=== PATIENT | male | born 1935 | race Caucasian/White ===

== ENCOUNTER → 2019-09-20 | Outpatient (CLI) | payer OTHER, BC ==
[~2019-09-20] MED LIST: ADULT LOW DOSE81 MG; BROVANA15 MCG/2 M; FUROSEMIDE 40 M40 MG; HYDROCHLOROTH12.5 MG; KLOR-CON; LOPRESSOR; PULMICORT0.5 MG/2 M; SIMVASTATIN80 MG; SINGULAIR 10 MG10 M1
== END ==
LOC: SJCVC 09:47
DX: I10 Essential (primary) hypertension (principal); R94.31 Abnormal electrocardiogram [ECG] [EKG]; J44.9 Chronic obstructive pulmonary disease, unspecified; E11.9 Type 2 diabetes mellitus without complications; E78.5 Hyperlipidemia, unspecified; Z88.8 Allergy status to other drugs, medicaments and biological substances; Z79.84 Long term (current) use of oral hypoglycemic drugs; Z79.899 Other long term (current) drug therapy

== ENCOUNTER → 2019-09-27 | Outpatient (CLI) | payer OTHER, BC | LOC: RAD 09:40 → SJCVC 09:40 | DX: J44.9 Chronic obstructive pulmonary disease, unspecified (principal); J98.4 Other disorders of lung ==

== ENCOUNTER → 2019-11-08 | Outpatient (CLI) | payer OTHER, BC | LOC: SJCVC 10:47 | DX: R94.31 Abnormal electrocardiogram [ECG] [EKG] (principal); I10 Essential (primary) hypertension; E78.5 Hyperlipidemia, unspecified; J44.9 Chronic obstructive pulmonary disease, unspecified; E11.9 Type 2 diabetes mellitus without complications ==

== ENCOUNTER → 2020-01-26 | Outpatient (CLI) | payer OTHER, BC | LOC: SJCVC 13:43 | DX: R94.31 Abnormal electrocardiogram [ECG] [EKG] (principal); I44.0 Atrioventricular block, first degree; I10 Essential (primary) hypertension; R06.09 Other forms of dyspnea; E78.5 Hyperlipidemia, unspecified; R60.9 Edema, unspecified; I61.1 Nontraumatic intracerebral hemorrhage in hemisphere, cortical ==

== ENCOUNTER → 2020-05-30 | Outpatient (CLI) | payer OTHER, BC | LOC: SJCVC 10:28 | PROVIDERS: ATTEND Internal Medicine Cardiovascular Disease | DX: R06.09 Other forms of dyspnea (principal); I10 Essential (primary) hypertension; R60.9 Edema, unspecified; E78.00 Pure hypercholesterolemia, unspecified; Z79.899 Other long term (current) drug therapy; Z87.891 Personal history of nicotine dependence ==

== ENCOUNTER → 2020-11-28 | Outpatient (CLI) | payer OTHER, BC | LOC: SJCVC 11:29 | PROVIDERS: ATTEND Internal Medicine Cardiovascular Disease | DX: R94.31 Abnormal electrocardiogram [ECG] [EKG] (principal); I10 Essential (primary) hypertension; R06.00 Dyspnea, unspecified; J44.9 Chronic obstructive pulmonary disease, unspecified; E78.00 Pure hypercholesterolemia, unspecified; R60.9 Edema, unspecified; I63.9 Cerebral infarction, unspecified; E11.9 Type 2 diabetes mellitus without complications; E78.5 Hyperlipidemia, unspecified; G47.33 Obstructive sleep apnea (adult) (pediatric); M10.9 Gout, unspecified; Z79.899 Other long term (current) drug therapy; Z79.82 Long term (current) use of aspirin; Z88.0 Allergy status to penicillin; Z87.891 Personal history of nicotine dependence; Z72.89 Other problems related to lifestyle; Z86.73 Personal history of transient ischemic attack (TIA), and cerebral infarction without residual deficits; Z79.84 Long term (current) use of oral hypoglycemic drugs ==

== ENCOUNTER → 2020-12-03 | Outpatient (CLI) | payer OTHER, BC | LOC: SJCVCIMAG 07:14 | PROVIDERS: ATTEND Internal Medicine Cardiovascular Disease | DX: R94.31 Abnormal electrocardiogram [ECG] [EKG] (principal); I44.0 Atrioventricular block, first degree; R06.09 Other forms of dyspnea; E78.00 Pure hypercholesterolemia, unspecified; I10 Essential (primary) hypertension; J44.9 Chronic obstructive pulmonary disease, unspecified; R60.9 Edema, unspecified; E11.9 Type 2 diabetes mellitus without complications; M10.9 Gout, unspecified; E78.5 Hyperlipidemia, unspecified; G47.33 Obstructive sleep apnea (adult) (pediatric); Z79.82 Long term (current) use of aspirin; Z79.899 Other long term (current) drug therapy; Z79.84 Long term (current) use of oral hypoglycemic drugs; Z86.73 Personal history of transient ischemic attack (TIA), and cerebral infarction without residual deficits; Z87.891 Personal history of nicotine dependence; Z72.89 Other problems related to lifestyle; Z88.0 Allergy status to penicillin ==

== ENCOUNTER → 2021-01-28 | Outpatient (CLI) | payer OTHER, BC ==
--- NOTE | 2021-01-31 16:51 | SLE ---
[facility] [place] [address] POLYSOMNOGRAPHY STUDY Name: JERO REEVES Room #: REG [facility]#: [id number] Admission: 01/28/21 Attend Phys: John Hoff MD Discharge: Date of : 34 Report #: [id number] THIS REPORT FOR: cc: CINDY - Family physician unknown CINDY - Family physician unknown Buster Paul MD ~ DATE OF SERVICE: 01/28/2021 SLEEP STUDY ATTENDING PHYSICIAN: Dr. John Hoff. The patient is an 85-year-old who weighs 197 pounds with a BMI of 30.9. The patient's [place] score was 9. The patient has a history of sleep apnea, diagnosed several years ago in [place]. The patient's AHI was only 11 per hour. The patient has been on auto CPAP at a minimum pressure of 8 and a maximum pressure of 14. The patient's recent download data shows AHI was only 0.2. The patient averaging 7-1/2 hours of CPAP usage. Another sleep study was performed to assess for degree of severity of sleep apnea. Split-night study was ordered. During the night study, the patient spent 414 minutes in bed and slept for 242 minutes with a low sleep efficiency of 58%. Sleep latency was 19 minutes with a REM latency of 305 minutes. Sleep architecture showed normal stage 1 sleep, increased stage 2 sleep, absent slow wave and reduced REM sleep, which was 7% of total sleep time. During the night of the study, the patient had 30 obstructive apneas, no mixed or central apneas and 13 hypopneas. The patient's AHI was 10.6 per hour. Supine AHI 12.9 per hour. REM sleep was not observed. EKG monitoring revealed an average heart rate of 84 beats per minute. No sustained arrhythmias observed. PLMs were not seen. Nocturnal oximetry study revealed an average oxygen saturation of 89% with lowest of 84%. 194 minutes were spent with oxygen saturation of less than 89%. Majority of the time saturations were between 88%-90% Due to low AHI, the patient did not meet the split night criteria for CPAP initiation. IMPRESSION: 1. Mild obstructive sleep apnea at an AHI of 10.6 per hour. 2. Nocturnal hypoxia secondary to suspected hypoventilation and obstructive sleep apnea. [facility] [address] [place] [address] POLYSOMNOGRAPHY STUDY Name: JERO REEVES Room #: REG [facility]#: [id number] Admission: 01/28/21 Attend Phys: John Hoff MD Discharge: Date of : 34 Report #: [id number] 3. No clinically significant PLMs. 4. 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 RECOMMENDATIONS: 1. The patient did not meet the split night criteria for CPAP initiation due to low AHI. 2. The patient has mild sleep apnea. 3. Weight loss as initial form of treatment is recommended. If the patient has comorbid conditions or is clinically symptomatic, then consider treatment of sleep apnea with CPAP. 4. Avoid AUTOMOTIVE PAINT TECHNICIAN depressants. 5. 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 If this is a chronic condition, then it can also contribute to the patient's daytime somnolence and it should be further evaluated and treated according to the etiology. 6. Cautioned regarding driving until the patient's hypersomnia is resolved. <ELECTRONICALLY SIGNED> By: Buster Paul MD 01/31/21 [phone] Buster Paul MD /nt
== END ==
LOC: SLEEPLAB 10:02
PROVIDERS: ATTEND Internal Medicine
DX: G47.33 Obstructive sleep apnea (adult) (pediatric) (principal); G47.34 Idiopathic sleep related nonobstructive alveolar hypoventilation

== ENCOUNTER 2021-03-17 06:05 | Emergency (ER) | payer OTHER, BC ==
[~2021-03-17] VITALS: Ht 170.2 cm; Wt 89.4 kg
--- NOTE | ~2021-03-17 | EMS ---
[address] [address] EMS Patient Care Report Name: JERO REEVES Room #: REG ANJALI Swan#: [id number] Admission: 03/17/21 Attend Phys: Discharge: Date of : 34 Report #: [id number] THIS REPORT FOR: //name// Report Transmitted: 03/17/2021 06:20 EMS Care Summary [facility] MED-ACT Incident [id number] @ 03/17/2021 05:27 Incident Location [address] [place] [address] Patient JERO REEVES Male, 85 Years 1935 Patient Address [address] [place] [address] Patient History Congestive Heart Failure (CHF),Chronic Obstructive Pulmonary Disease (COPD),Diabetes,Hypertension (HTN), Patient Allergies Penicillin allergy, Patient Medications Metformin, Aspirin, Amlodipine, Lisinopril, Vitamin D, Atorvastatin, Tylenol, Silodosin, Carvedilol, Furosemide, Spironolactone, Chief Complaint Hand injury Disposition Transported No Lights/[place] Dispatch Reason Falls Transported To [facility] Narrative [address] [address] EMS Patient Care Report Name: JERO REEVES [facility] [id number] Admission: 03/17/21 Attend Phys: Discharge: Date of : 34 Report #: [id number] Upon arrival pt was seated on his sofa, dressed in a t shirt and under pants and in no obvious distress. Pt. stated that he fell out of bed due to a nightmare and struck his hand on the night stand. Pt. denied any loss of consciousness or any pain. Pt. had a large area of avulsed tissue on his left hand. Pt. reported that his hand had been swelling for the past week with no associated trauma. Pt. was secured to cot and loaded into unit without incident. Biocom given en route. Pt. stood and walled from cot to bed without assistance or incident. Report given to RN and MD. Initial Vitals @05:49P: 76,BP: 159/90,SpO2: 100, @05:58P: 74,BP: 162/83,SpO2: 93, @05:37P: 74,R: 16,BP: 150/83,Pain: 2/10,GCS: 15,Temp: 97.6F,SpO2: 92,Revised Trauma: 12, Assessments @05:36MENTAL:No Abnormalities,SKIN:No Abnormalities,HEENT:Head/Face: No Abnormalities,Eyes: No Abnormalities,Neck/Airway: No Abnormalities,LUNG SOUNDS:General: No Abnormalities,Left Upper: No Abnormalities,Right Upper: No Abnormalities,Left Lower: No Abnormalities,Right Lower: No Abnormalities,ABDOMEN:General: No Abnormalities,Left Upper: No Abnormalities,Right Upper: No Abnormalities,Left Lower: No Abnormalities,Right Lower: No Abnormalities,PELVIS//GI:No Abnormalities,EXTREMITIES:Left Arm: Other,Left Arm: AVU,Right Arm: No Abnormalities,Left Leg: No Abnormalities,Right Leg: No Abnormalities,PULSE:Radial: 2+ Normal,NEURO:No Abnormalities, Impression Injury of Wrist, Hand, or Fingers Procedures @05:36ALS AssessmentResponse: UnchangedSucceeded@05:40BandagingResponse: UnchangedSucceeded@05:45StretcherResponse: Unchanged Timeline 05:25,Call Received 05:25,Psap Call 05:27,Dispatched 05:27,En Route 05:31,On Scene 05:35,At Patient 05:36,ALS Assessment,Response: UnchangedSucceeded, 05:37,BP: 150/83 M,PULSE: 74,RR: 16 R,SPO2: 92 Ox,ETCO2: ,BG: ,PAIN: 2,GCS: 15, 05:40,Bandaging,Response: UnchangedSucceeded, 05:45,Stretcher,Response: Unchanged 05:49,BP: 159/90 M,PULSE: 76,RR: R,SPO2: 100 Ox,ETCO2: ,BG: ,PAIN: ,GCS: , [facility] [address] [place] [address] EMS Patient Care Report Name: JERO REEVES Nai Room #: REG Beny#: [id number] Admission: 03/17/21 Attend Phys: Discharge: Date of : 34 Report #: [id number] 05:50,Depart Scene 05:58,BP: 162/83 M,PULSE: 74,RR: R,SPO2: 93 Ox,ETCO2: ,BG: ,PAIN: ,GCS: , 06:00,At Destination 06:14,Call Closed Disclaimer v1.1 Copyright 2020 [employer] This EMS Care Summary contains data elements from the applicable legal record (which may be displayed differently). It is designed to provide pertinent information for the following purposes: continuity of care, clinical quality, and state data reporting. The complete legal record is available to ED staff and administrators of the receiving hospital in [employer]'s Patient Tracker. All data is provided "as is."
[2021-03-17] MEDS ORDERED: ALOGLIPTIN12.5 MG PO (06:48)
[2021-03-17] MEDS ORDERED: NORVASC10 MG PO (06:48)
[2021-03-17] MEDS ORDERED: [UNRECOGNIZED DRUG - OTHER] PO (06:49)
[2021-03-17] MEDS ORDERED: CARVEDILOL12.5 MG PO (06:49)
[2021-03-17] MEDS ORDERED: ENBREL50 MG/1 M1 SUBQ (06:50)
[2021-03-17] MEDS ORDERED: NEXIUM40 MG PO (06:50)
[2021-03-17] MEDS ORDERED: SILODOSIN8 MG PO (06:53)
[2021-03-17] MEDS ORDERED: SPIRONOLACTONE25 MG PO (06:54)
[2021-03-17] MEDS ORDERED: LIPITOR40 MG PO (06:55)
[2021-03-17 07:36] VITALS: BP 152/77
== END 2021-03-17 07:36 | disposition home or self-care (01) ==
LOC: ER 06:05
DX: S61.412A Laceration without foreign body of left hand, initial encounter (principal); J45.909 Unspecified asthma, uncomplicated; Z98.890 Other specified postprocedural states; Z85.038 Personal history of other malignant neoplasm of large intestine; Z88.0 Allergy status to penicillin; W22.8XXA Striking against or struck by other objects, initial encounter; Y93.89 Activity, other specified; Y92.89 Other specified places as the place of occurrence of the external cause; Y99.8 Other external cause status

== ENCOUNTER → 2021-06-05 | Outpatient (CLI) | payer OTHER, BC ==
[~2021-06-05] MED LIST changes: +ALOGLIPTIN12.5 MG PO; +CARVEDILOL12.5 MG PO; +ENBREL50 MG/1 M1 SUBQ; +LIPITOR40 MG PO; +NEXIUM40 MG PO; +NORVASC10 MG PO; +SILODOSIN8 MG PO; +SPIRONOLACTONE25 MG PO; +[UNRECOGNIZED DRUG - OTHER] PO
== END ==
LOC: SJCVC 09:25
PROVIDERS: ATTEND Internal Medicine Cardiovascular Disease
DX: U07.1 COVID-19 (principal); R94.31 Abnormal electrocardiogram [ECG] [EKG]; I49.3 Ventricular premature depolarization; I12.9 Hypertensive chronic kidney disease with stage 1 through stage 4 chronic kidney disease, or unspecified chronic kidney disease; E11.22 Type 2 diabetes mellitus with diabetic chronic kidney disease; N18.9 Chronic kidney disease, unspecified; E78.00 Pure hypercholesterolemia, unspecified; J44.9 Chronic obstructive pulmonary disease, unspecified; I60.9 Nontraumatic subarachnoid hemorrhage, unspecified; I63.9 Cerebral infarction, unspecified; E83.52 Hypercalcemia; E78.5 Hyperlipidemia, unspecified; R60.9 Edema, unspecified; G47.30 Sleep apnea, unspecified; Z86.73 Personal history of transient ischemic attack (TIA), and cerebral infarction without residual deficits; Z88.0 Allergy status to penicillin; Z79.84 Long term (current) use of oral hypoglycemic drugs; Z79.899 Other long term (current) drug therapy; Z79.82 Long term (current) use of aspirin; Z87.891 Personal history of nicotine dependence; Z72.89 Other problems related to lifestyle

== ENCOUNTER → 2021-08-20 | Outpatient (CLI) | payer OTHER, BC | LOC: NUC 08-19 15:33 | PROVIDERS: ATTEND Family Medicine | DX: E21.3 Hyperparathyroidism, unspecified (principal); R79.89 Other specified abnormal findings of blood chemistry ==

== ENCOUNTER → 2021-09-02 | Outpatient (CLI) | payer OTHER, BC | LOC: ULTRA 08:32 | PROVIDERS: ATTEND Otolaryngology Plastic Surgery within the Head & Neck | DX: E21.0 Primary hyperparathyroidism (principal); N19 Unspecified kidney failure; I25.10 Atherosclerotic heart disease of native coronary artery without angina pectoris; Z86.73 Personal history of transient ischemic attack (TIA), and cerebral infarction without residual deficits ==

== ENCOUNTER 2021-09-08 09:41 | Inpatient (IN) | payer OTHER, BC ==
[~2021-09-08] VITALS: Ht 170.2 cm; Wt 86.4 kg
--- NOTE | ~2021-09-08 | EMS ---
[facility] [address] [place] [address] EMS Patient Care Report Name: JERO REEVES Room #: 170-12 ADM IN M.R.#: [id number] Admission: 09/08/21 Attend Phys: Sheryl Villegas Discharge: Date of : 34 Report #: [id number] THIS REPORT FOR: //name// Report Transmitted: 09/08/2021 17:16 EMS Care Summary [facility] MED-ACT Incident [id number] @ 09/08/2021 08:58 Incident Location [address] [place] [address] Patient JERO REEVES Male, 86 Years 1935 Patient Address [address] [place] [address] Patient History Chronic Obstructive Pulmonary Disease (COPD),Diabetes,Hypertension (HTN),Stroke/CVA,Hyperlipidemia, Patient Allergies Penicillin allergy, Patient Medications ASA, Furosemide, Spironolactone, Metformin, Vitamin D, Amlodipine, Lisinopril, Chief Complaint Weakness Disposition Transported No Lights/[place] Dispatch Reason Breathing Problem Transported To [facility] Narrative D- M1149 is dispatched to an independent living facility for difficulty [facility] [address] [place] [address] EMS Patient Care Report Name: JERO REEVES Room #: 170-12 ADM IN M.R.#: [id number] Admission: 09/08/21 Attend Phys: Sheryl Lukasz Nelly Discharge: Date of : 34 Report #: [id number] breathing. C- EMS arrives to find a 86 year old male siting upright on the couch in his living room. The pt does not appear to have labored breathing. The pt is A&ox4. The pt has a CC of generalized weakness. H- The pt reports that over the last week or two he has experienced general weakness. He states that he has had lower back pain for the past week and describes it as being sore. He denies any new recent activity that he normally does not do. He also states that today he had shortness of breath and a productive cough. He states that his shortness of breath is normal for him, but the cough is not normal. He denies having any chest pain. The pt also reports that he has had diarrhea for the last several days. He denies any abdominal pain, nausea, or vomiting. A- See assessment tab Tx- Vitals and 12 lead T- The pt is assisted with pivoting and secured to the stretcher. The pt only complains of lower back pain and his eyes watering while en route. The pt remains stable while en route and his disposition did not change. He is transferred to staffing coordinator at [facility] in the triage area. Initial Vitals @09:25P: 75,NH Suspected: false @09:24P: 75,BP: 119/70,SpO2: 98, @09:35P: 75,SpO2: 99, @09:35P: 74,R: 20,BP: 115/69,SpO2: 98, @09:23P: 93,R: 20,Pain: 4/10,GCS: 15,SpO2: 97,NH Suspected: false @PTAP: 74,R: 20,BP: 91/56,Pain: 4/10,GCS: 15,Temp: 98F,Glucose: 176,SpO2: 73,Revised Trauma: 12, Impression Generalized Weakness Procedures @09:11 ALS Assessment Response: UnchangedSucceeded @PTASurgical Mask on Patient Response: Unchanged @09:25 12-Lead ECG Response: UnchangedSucceeded Timeline GAS DISPATCHER,Surgical Mask on Patient,Response: Unchanged GAS DISPATCHER,BP: 91/56 M,PULSE: 74,RR: 20 R,SPO2: 73 Ox,ETCO2: ,B,PAIN: 4,GCS: 15, [address] [address] EMS Patient Care Report Name: JERO REEVES Room #: 170-12 ADM IN .R.#: [id number] Admission: 09/08/21 Attend Phys: Sheryl Villegas Discharge: Date of : 34 Report #: [id number] 08:56,Call Received 08:56,Psap Call 08:58,Dispatched 08:59,En Route 09:05,On Scene 09:10,At Patient 09:11,ALS Assessment,Response: UnchangedSucceeded, 09:23,BP: / M,PULSE: 93,RR: 20 R,SPO2: 97 Ox,ETCO2: ,BG: ,PAIN: 4,GCS: 15, 09:24,BP: 119/70 M,PULSE: 75,RR: R,SPO2: 98 Ox,ETCO2: ,BG: ,PAIN: ,GCS: , 09:25,12-Lead ECG,Response: UnchangedSucceeded, 09:25,BP: / M,PULSE: 75,RR: R,SPO2: Ox,ETCO2: ,BG: ,PAIN: ,GCS: , 09:28,Depart Scene 09:35,BP: / M,PULSE: 75,RR: R,SPO2: 99 Ox,ETCO2: ,BG: ,PAIN: ,GCS: , 09:35,BP: 115/69 M,PULSE: 74,RR: 20 R,SPO2: 98 Ox,ETCO2: ,BG: ,PAIN: ,GCS: , 09:37,At Destination 10:01,Call Closed Disclaimer v1.1 Copyright 2021 [employer] This EMS Care Summary contains data elements from the applicable legal record (which may be displayed differently). It is designed to provide pertinent information for the following purposes: continuity of care, clinical quality, and state data reporting. The complete legal record is available to ED staff and administrators of the receiving hospital in [employer]'s Patient Tracker. All data is provided "as is."
--- NOTE | ~2021-09-08 | EMS ---
[facility] [address] [place] [address] EMS Patient Care Report Name: JERO REEVES Room #: 170-12 ADM IN M.R.#: [id number] Admission: 09/08/21 Attend Phys: Sheryl Villegas Discharge: Date of : 34 Report #: [id number] THIS REPORT FOR: //name// Report Transmitted: 09/08/2021 16:13 EMS Care Summary [facility] MED-ACT Incident [id number] @ 09/08/2021 08:58 Incident Location [address] [place] [address] Patient JERO REEVES Male, 86 Years 1935 Patient Address [address] [place] [address] Patient History Chronic Obstructive Pulmonary Disease (COPD),Diabetes,Hypertension (HTN),Stroke/CVA,Hyperlipidemia, Patient Allergies Penicillin allergy, Patient Medications ASA, Furosemide, Spironolactone, Metformin, Vitamin D, Amlodipine, Lisinopril, Chief Complaint Weakness Disposition Transported No Lights/[place] Dispatch Reason Breathing Problem Transported To [facility] Narrative D- M1149 is dispatched to an independent living facility for difficulty [facility] [address] [place] [address] EMS Patient Care Report Name: JERO REEVES Room #: 170-12 ADM IN M.R.#: [id number] Admission: 09/08/21 Attend Phys: Sheryl Lukasz Nelly Discharge: Date of : 34 Report #: [id number] breathing. C- EMS arrives to find a 86 year old male siting upright on the couch in his living room. The pt does not appear to have labored breathing. The pt is A&ox4. The pt has a CC of generalized weakness. H- The pt reports that over the last week or two he has experienced general weakness. He states that he has had lower back pain for the past week and describes it as being sore. He denies any new recent activity that he normally does not do. He also states that today he had shortness of breath and a productive cough. He states that his shortness of breath is normal for him, but the cough is not normal. He denies having any chest pain. The pt also reports that he has had diarrhea for the last several days. He denies any abdominal pain, nausea, or vomiting. A- See assessment tab Tx- Vitals and 12 lead T- The pt is assisted with pivoting and secured to the stretcher. The pt only complains of lower back pain and his eyes watering while en route. The pt remains stable while en route and his disposition did not change. He is transferred to staff interpreter at [facility] in the triage area. Initial Vitals @09:25P: 75,NM Suspected: false @09:24P: 75,BP: 119/70,SpO2: 98, @09:35P: 75,SpO2: 99, @09:35P: 74,R: 20,BP: 115/69,SpO2: 98, @09:23P: 93,R: 20,Pain: 4/10,GCS: 15,SpO2: 97,NM Suspected: false @PTAP: 74,R: 20,BP: 91/56,Pain: 4/10,GCS: 15,Temp: 98F,Glucose: 176,SpO2: 73,Revised Trauma: 12, Impression Generalized Weakness Procedures @09:11 ALS Assessment Response: UnchangedSucceeded @PTASurgical Mask on Patient Response: Unchanged @09:25 12-Lead ECG Response: UnchangedSucceeded Timeline MARINE CARGO SPECIALIST,Surgical Mask on Patient,Response: Unchanged MARINE CARGO SPECIALIST,BP: 91/56 M,PULSE: 74,RR: 20 R,SPO2: 73 Ox,ETCO2: ,B,PAIN: 4,GCS: 15, [address] [address] EMS Patient Care Report Name: JERO REEVES Room #: 170-12 ADM IN .R.#: [id number] Admission: 09/08/21 Attend Phys: Sheryl Villegas Discharge: Date of : 34 Report #: [id number] 08:56,Call Received 08:56,Psap Call 08:58,Dispatched 08:59,En Route 09:05,On Scene 09:10,At Patient 09:11,ALS Assessment,Response: UnchangedSucceeded, 09:23,BP: / M,PULSE: 93,RR: 20 R,SPO2: 97 Ox,ETCO2: ,BG: ,PAIN: 4,GCS: 15, 09:24,BP: 119/70 M,PULSE: 75,RR: R,SPO2: 98 Ox,ETCO2: ,BG: ,PAIN: ,GCS: , 09:25,12-Lead ECG,Response: UnchangedSucceeded, 09:25,BP: / M,PULSE: 75,RR: R,SPO2: Ox,ETCO2: ,BG: ,PAIN: ,GCS: , 09:28,Depart Scene 09:35,BP: / M,PULSE: 75,RR: R,SPO2: 99 Ox,ETCO2: ,BG: ,PAIN: ,GCS: , 09:35,BP: 115/69 M,PULSE: 74,RR: 20 R,SPO2: 98 Ox,ETCO2: ,BG: ,PAIN: ,GCS: , 09:37,At Destination 10:01,Call Closed Disclaimer v1.1 Copyright 2021 [employer] This EMS Care Summary contains data elements from the applicable legal record (which may be displayed differently). It is designed to provide pertinent information for the following purposes: continuity of care, clinical quality, and state data reporting. The complete legal record is available to ED staff and administrators of the receiving hospital in [employer]'s Patient Tracker. All data is provided "as is."
[~2021-09-08 09:41] MED LIST changes: +SILODOSIN4 MG PO; -SILODOSIN8 MG PO
[2021-09-08 09:50] VITALS: BP 146/85
[2021-09-08 10:35] LABS: BE(vivo) 0.9 mmol/L (-2 to +3); HCO3 28.3 mmol/L (22.0-26.0); PCO2 58.4 mmHg (35.0-45.0); PO2 116.8 mmHg (80.0-100.0); pH 7.303 (7.360-7.450); sO2 97.8 % (92.0-98.0)
[2021-09-08 10:42] LABS: ABSOLUTE NEUTROPHILS 4.5 thou/uL (1.4-8.2); BASOPHILS 0.1 % (0.0-2.0); HEMATOCRIT 35.2 % (42.0-52.0); HEMOGLOBIN 11.7 gm/dL (14.0-18.0); LYMPHOCYTES 10.5 % (24.0-44.0); MCH 31.4 pg (26.0-34.0); MCHC 33.3 g/dL (28.0-37.0); MCV 94.4 fL (80.0-100.0); MONOCYTES 9.2 % (1.0-8.0); PLATELET COUNT 140 thou/uL (150-400); POLYS 80.2 % (36.0-66.0); RBC 3.73 mil/uL (4.50-6.00); RDW 14.5 % (10.5-14.5); WBC 5.6 thou/uL (4.0-11.0)
[2021-09-08 11:00] LABS: CREATININE 1.9 mg/dL (0.7-1.3); POTASSIUM 4.7 mmol/L (3.5-5.1)
--- NOTE | 2021-09-08 15:56 | EKG ---
[place] [address] [address] [employer] [facility] [place] [address] ELECTROCARDIOGRAM REPORT Name: JERO REEVES Room #: 170-12 ADM IN M.R.#: [id number] Admission: 09/08/21 Attend Phys: Sheryl Villegas Discharge: Date of : 34 Report #: [id number] [facility] ED Test Date: 2021-09-08 Test Time: 10:34:10 Pat Name: JERO REEVES Department: Room: 170 Gender: M Plunket Nurse: JULIAN : 1935 Requested By: Gautam López Order Number: [id number] MD: Felix Lerma Measurements Intervals [place] Rate: 74 P: CO: QRS: -2 QRSD: 84 T: 128 QT: 369 QTc: 410 Interpretive Statements NSR 1 AVB Low voltage, extremity leads Abnormal R-wave progression, early transition No previous ECG available for comparison Electronically Signed On 09-08-2021 15:56:27 BIZTALK ARCHITECT by Felix Lerma [email or web address] <ELECTRONICALLY SIGNED> By: Felix Lerma MD, [facility] 09/08/21 1556 1034 1034 Felix Lerma MD, FACC /EPI
--- NOTE | 2021-09-09 07:34 | EKG ---
[place] [address] [facility] [place] [address] ELECTROCARDIOGRAM REPORT Name: JERO REEVES Room #: 170-12 ADM IN M.R.#: [id number] Admission: 09/08/21 Attend Phys: Sheryl Villegas Discharge: Date of : 34 Report #: [id number] [facility] ED Test Date: 2021-09-08 Test Time: 16:16:56 Pat Name: JERO REEVES Department: Room: 170 12 Gender: M Electroneurodiagnostic Technologist: ILENE : 1935 Requested By: Sheryl Villegas Order Number: [id number] MD: Nathan Uribe Measurements Intervals [place] Rate: 79 P: 84 LA: 207 QRS: -3 QRSD: 82 T: 64 QT: 368 QTc: 422 Interpretive Statements Sinus rhythm Abnormal R-wave progression, early transition Compared to ECG 09/08/2021 10:34:10 No significant changes Electronically Signed On 09-09-2021 7:34:32 MANAGER ADMINISTRATIVE by Nathan Uribe [email or web address] <ELECTRONICALLY SIGNED> By: Nathan Uribe MD, [facility] 09/09/21 0734 D: [id number] 15 Nathan Uribe MD, FACC /EPI
[2021-09-09 08:36] LABS: ALBUMIN 3.4 g/dL (3.4-5.0); CALCIUM 9.9 mg/dL (8.5-10.1); CREATININE 1.7 mg/dL (0.7-1.3); DIRECT BILIRUBIN 0.2 mg/dL (<0.1-0.2); PHOSPHORUS 3.6 mg/dL (2.6-4.7); POTASSIUM 4.5 mmol/L (3.5-5.1); TOTAL BILIRUBIN 0.4 mg/dL (0.2-1.0); TOTAL PROTEIN 7.1 g/dL (6.4-8.2)
[2021-09-09 16:20] VITALS: BP 136/85
[2021-09-09 16:37] VITALS: BP 142/77
--- NOTE | 2021-09-09 19:56 | NUR ---
PT ADMITTED FROM ER FOR [facility] AT 1700PM, PT IS A&OX4, PT IS ON O2 4L/MIN/NC, PT 'S VS ARE STABLE, BUT PT HAS SOB WITH ACTIVITIES, PT DENIES PAIN AT DAY SHIFT, RN HAS REPORTED TO NEXT SHIFT TO KEEP EYE ON PT.
[2021-09-09 20:45] VITALS: BP 117/53
[2021-09-10 00:05] VITALS: BP 124/67
[2021-09-10 04:19] VITALS: BP 141/84
[2021-09-10 05:07] LABS: ALBUMIN 3.1 g/dL (3.4-5.0); ANION GAP 4 mmol/L (7-16); BUN 56 mg/dL (7-18); CALCIUM 9.8 mg/dL (8.5-10.1); CHLORIDE 105 mmol/L (98-107); CO2 32 mmol/L (21-32); CREATININE 1.6 mg/dL (0.7-1.3); DIRECT BILIRUBIN < 0.1 mg/dL (<0.1-0.2); GLUCOSE 204 mg/dL (74-106); PHOSPHORUS 3.9 mg/dL (2.5-4.9); POTASSIUM 4.7 mmol/L (3.5-5.1); SGOT 19 U/L (15-37); SGPT 23 U/L (30-65); SODIUM 141 mmol/L (136-145); TOTAL BILIRUBIN 0.3 mg/dL (0.2-1.0); TOTAL PROTEIN 6.6 g/dL (6.4-8.2)
--- NOTE | 2021-09-10 05:37 | NUR ---
PT IS ALERT AND ORIENTED X4. VSS AFEBRILE THIS AM. NO C/O PAIN OR SOA THIS AM .UNLABORED ON 4LNC. VOIDS PER BSC CLEAR YELLOW URINE. NO S/S DISTRESS.
[2021-09-10] MEDS ORDERED: PRINIVIL40 MG PO (07:08)
[2021-09-10] MEDS ORDERED: CHOLECALCIFEROL PO (07:37)
[2021-09-10 08:03] VITALS: BP 141/82
[2021-09-10] MEDS ORDERED: METFORMIN HCL500 M3 PO (12:06)
[2021-09-10] MEDS ORDERED: PROAIR HFA8.5 GM (12:10)
[2021-09-10] MEDS ORDERED: BROVANA15 MCG/2 M (12:15)
[2021-09-10 15:37] VITALS: BP 100/57
--- NOTE | 2021-09-10 16:12 | NUR ---
INITIAL ASSESSMENT: KOKO reviewed chart and spoke with nursing and attending physician. Pt was admitted from [facility]. Pt placed in Enhanced Isolation due to COVID. Pt has received the Moderna COVID vaccination. Pt is afebrile and on 4L of O2. Pt is on IV abx, IV steroids and Remdesivir. Therapy evals ordered today. KOKO placed call to pt's room. No answer. Per chart, pt is alert/orientated x 4. Pt's PCP is listed as Dr. Nathan. KOKO discussed case with [place] liaison. Pt [place] able [place] to [place]. Meals will be delivered to his apt. KOKO is following to assist as needed with discharge planning.
--- NOTE | 2021-09-10 18:46 | NUR ---
RN ASSUMED PT'S CARE AT 0700AM, PT IS A&OX4, PT IS ON O2 4L/MIN/NC, PT'S O2SAT AND VS ARE STABLE AT DAY SHIFT, BUT PT STILL HAS SOB WITH ACTIVITIES, PT IS CONTINUING IV ABX AND TREAT COVID MEDICATIONS, PT DENIES PAIN AND N/V AT DAY SHIFT.
[2021-09-10 19:41] VITALS: BP 107/53
[2021-09-11 04:03] VITALS: BP 151/77
[2021-09-11 06:01] LABS: ALBUMIN 3.2 g/dL (3.4-5.0); CALCIUM 9.8 mg/dL (8.5-10.1); CREATININE 1.7 mg/dL (0.7-1.3); DIRECT BILIRUBIN 0.1 mg/dL (<0.1-0.2); PHOSPHORUS 4.4 mg/dL (2.5-4.9); POTASSIUM 4.4 mmol/L (3.5-5.1); TOTAL BILIRUBIN 0.3 mg/dL (0.2-1.0); TOTAL PROTEIN 6.6 g/dL (6.4-8.2)
--- NOTE | 2021-09-11 06:43 | NUR ---
PT PROGRESSING TOWARDS D/C GOALS. VSS AFEBRILE TONIGHT. SATS WNL ON 3LNC. NO C/O PAIN OR SOA. PT ANXIOUS TO GO HOME.
[2021-09-11 07:44] VITALS: BP 150/83
--- NOTE | 2021-09-11 11:46 | NUR ---
KOKO reviewed chart and spoke with nursing and attending physician. Pt remains in Enhanced isolation due to COVID. Pt is afebrile and on 3L of O2. Pt is on IV steroids and Remdesivir. PT/OT evals ordered. Discharge is anticipated in 1-2 days. KOKO spoke with pt via phone. Introduced role of SW. Pt is alert/orientated x 4. Pt reports he lives alone in an apt at [place] [facility]. Pt has home O2 in place through [employer]. Pt has used [facility] in the past and has been to [facility]. Pt's PCP is Dr. Nathan. Pt states he feels ready to discharge. KOKO spoke with pt's dtr, Kasey ([phone]) via phone. Introduced role of KOKO. Kasey is currently out of town. Pt has another dtr and grandchildren who are in town and able to assist pt as needed. Kasey is agreeable with discharge plan. Pt has a rollator walker and also a portable O2 concentrator. Pt has three meals a day provided by [place]. Pt's meds are set up with an automatic pill dispenser. Per Kasey, pt has a girlfriend at [place], who also has COVID and is in quarantine. KOKO discussed with pt's dtr that while pt is in quarantine, meals will be delivered to his room. Pt's laundry has been done and bedding has been changed by [place] staff. KOKO faxed HH referral to [facility] for review. Spoke with in intake to confirm info was received. Notified of anticipated discharge timeframe. KOKO updated [place] liaison. [facility] does not have transportation available for COVID pts. Plan is for pt to discharge home with when medically stable. KOKO is following to assist as needed with discharge planning.
[2021-09-11 15:50] VITALS: BP 134/71
[2021-09-11 19:25] VITALS: BP 138/77
--- NOTE | 2021-09-12 05:28 | NUR ---
Patient progressing towards outcome goals. Vital signs and rhythm stable. Denies pain. Gait steady up tp BSC. Oxygenation optimalon 3L NC, basline for patient.
[2021-09-12 05:34] VITALS: BP 140/71
[2021-09-12 06:34] LABS: ALBUMIN 3.1 g/dL (3.4-5.0); CREATININE 1.5 mg/dL (0.7-1.3); DIRECT BILIRUBIN 0.1 mg/dL (<0.1-0.2); POTASSIUM 4.5 mmol/L (3.5-5.1); TOTAL BILIRUBIN 0.4 mg/dL (0.2-1.0); TOTAL PROTEIN 6.4 g/dL (6.4-8.2)
[2021-09-12 07:48] VITALS: BP 130/85
[2021-09-12 11:35] VITALS: BP 130/85
--- NOTE | 2021-09-12 11:41 | NUR ---
KOKO reviewed chart and spoke with nursing and attending physician. Pt remains in Enhanced Isolation due to COVID. Pt is afebrile and on 3L of O2. Pt is on IV abx/IV steroids. Pt to complete course of Remdesivir today. Discharge home with HH is anticipated for tomorrow. Rest/exercise oximetry ordered to determine pt's home O2 needs. Pt has home O2 in place for nighttime use only through [employer]. KOKO spoke with Molly at [facility], who states they are able to start HH services on 09/23. [facility] waits 14 days past positive COVID Test date to start HH. KOKO spoke with pt's dtr, Kasey, via phone to discuss discharge plan. Kasey is agreeable with using an alternate HH company, that would be able to start HH soon after discharge. Options provided. No preference voiced. KOKO notified [facility] of new refeerral. [place] is not able to provide transportation tomorrow. Pt's family that live in all have COVID and unable to provide transportation. KOKO discussed with Director of Case Mgmt. [facility] to be called to transport pt back to his apt tomorrow afternoon. Pt will need to eat lunch here. [place] to start delivering his meals to his apt tomorrow evening. KOKO updated [place] liaison of pt's discharge plan. Requested clarification on isolation protocol at the facility per family request. Final discharge ppwk will need to be faxed to [facility] when available. KOKO is following to assist as needed with discharge planning.
[2021-09-12 15:10] VITALS: BP 126/77
[2021-09-12 20:48] VITALS: BP 115/67
[2021-09-13 05:09] VITALS: BP 134/68
--- NOTE | 2021-09-13 05:45 | NUR ---
PT MAKING SLOW PROGRESS TOWARDS GOALS. ON O2 AT 4L PER NC THIS MORNING. STATES HE FEELS LIKE IS BREATHING EASY THIS MORNING AND IS HOPING TO BE DISCHARGED TO HOME.
[2021-09-13 07:48] VITALS: BP 158/93
[2021-09-13] MEDS ORDERED: LEVOFLOXACIN500 MG PO (11:17)
[2021-09-13] MEDS ORDERED: PREDNISONE 20 M20 MG PO (11:18)
[2021-09-13 16:53] VITALS: BP 158/93
--- NOTE | 2021-09-13 21:58 | NUR ---
[facility] HAS ARRIVED. PT SENT WITH BELONGINGS, CLOTHES AND CELL PHONE. ALSO WITH PORTABLE O2 TANK W/NC. O2 STARTED AT 4L PER NC. MAINTENANCE JOB TITLES INSTRUCTED TO CALL SECURITY AT [place] SO THAT PT CAN BE LET INTO HIS APARTMENT. NUMBER GIVEN WELL.
== END 2021-09-13 22:00 | disposition home health service (06) | DRG 177 ==
LOC: ER 09:41 → EROBS 11:48 → 3W 11:48
PROVIDERS: Emergency Medicine; ADMIT Hospitalist; ATTEND Hospitalist
PROC: XW033E5 Introduction of Remdesivir Anti-infective into Peripheral Vein, Percutaneous Approach, New Technology Group 5 (ICD-10-PCS; principal; 2021-09-08)
DX: U07.1 COVID-19 (principal); J96.91 Respiratory failure, unspecified with hypoxia; J44.1 Chronic obstructive pulmonary disease with (acute) exacerbation; D84.9 Immunodeficiency, unspecified; J45.909 Unspecified asthma, uncomplicated; Z85.038 Personal history of other malignant neoplasm of large intestine; Z85.46 Personal history of malignant neoplasm of prostate; Z98.49 Cataract extraction status, unspecified eye; Z88.0 Allergy status to penicillin; Z82.49 Family history of ischemic heart disease and other diseases of the circulatory system; Z83.6 Family history of other diseases of the respiratory system; Z87.891 Personal history of nicotine dependence; Z79.82 Long term (current) use of aspirin; Z79.899 Other long term (current) drug therapy
CPT/HCPCS: 10879

== ENCOUNTER 2021-09-14 15:46 | Inpatient (IN) | payer OTHER, BC ==
[~2021-09-14] VITALS: Ht 170.2 cm; Wt 82.8 kg
--- NOTE | ~2021-09-14 | EMS ---
[address] [address] EMS Patient Care Report Name: JERO REEVES Room #: 170-1 ADM IN M.R.#: [id number] Admission: 09/14/21 Attend Phys: Dexter Cardona MD Discharge: Date of : 34 Report #: [id number] THIS REPORT FOR: //name// Report Transmitted: 09/14/2021 23:36 EMS Care Summary [facility] MED-ACT Incident [id number] @ 09/14/2021 14:59 Incident Location [address] [place] [address] Patient JERO REEVES Male, 86 Years 1935 Patient Address [address] [place] [address] Patient History Chronic Obstructive Pulmonary Disease (COPD),Diabetes,Hypertension (HTN),Stroke/CVA,Hyperlipidemia,Novel Coronavirus (COVID-19), Patient Allergies Penicillin allergy, Patient Medications Metformin, Silodosin, Lisinopril, Amlodipine, Singulair, Furosemide, ASA, Levofloxacin, Metoprolol, Prednisone, Spironolactone, Carisoprodol, Atorvastatin, Albuterol, Carvedilol, Vitamin D, Chief Complaint dyspnea Disposition Transported No Lights/[place] Dispatch Reason Sick Person Transported To [address] [address] EMS Patient Care Report Name: JERO REEVES Room #: 170-1 ADM IN [facility]#: [id number] Admission: 09/14/21 Attend Phys: Dexter Cardona MD Discharge: Date of : 34 Report #: [id number] Narrative We were dispatched to the listed location for a code three medical call. Upon our arrival, we found the patient lying on his bed and in mild distress. The patient was alert and oriented with a GCS of 15. The patient is an 86 year old male who reported being weak and short of breath due to having COVID-19. The patient was recently transported to [facility] where he was treated and eventually released last night. Today, the patient was found by home health staff laying in bed and without his Oxygen on. Home health staff determined that the patient's SPO2 was "in the low 80s". Therefore, she put the patient on 4 L/min via his concentrator (which improved his dyspnea/SPO2) and called 911. The patient stated that there were no changes in his condition since being discharged from [facility]. Therefore, he requested transport to [facility] for a re-evaluation and treatment. After an initial assessment and vitals, the patient's Oxygen was switched to our source. He was ten assisted to the cot and secured per policy. Once in the unit, transport initiated. There were no changes in the patient's condition and care was transferred without incident. Initial Vitals @15:26P: 96,R: 22,BP: 175/92,SpO2: 97, @15:35P: 96,R: 22,BP: 160/87,SpO2: 100, @15:14P: 94,R: 22,BP: 146/68,Pain: 0/10,GCS: 15,Temp: 97.1F,SpO2: 96,Revised Trauma: 12, Impression COVID-19 - Confirmed by testing Procedures @15:15 ALS Assessment Response: UnchangedSucceeded @15:18 Surgical Mask on Patient Response: Unchanged @15:19 Oxygen FlowRate: 4 Device: Nasal Cannula (NC) Response: UnchangedSucceeded Timeline 14:57,Call Received 14:57,Psap Call 14:59,Dispatched 14:59,En Route 15:10,On Scene 15:13,At Patient 15:14,BP: 146/68 M,PULSE: 94,RR: 22 R,SPO2: 96 Ox,ETCO2: ,BG: ,PAIN: 0,GCS: 15, [facility] [address] [place] [address] EMS Patient Care Report Name: JERO REEVES Room #: 170-1 ADM IN [facility]#: [id number] Admission: 09/14/21 Attend Phys: Dexter Cardona MD Discharge: Date of : 34 Report #: [id number] 15:15,ALS Assessment,Response: UnchangedSucceeded, 15:18,Surgical Mask on Patient,Response: Unchanged 15:19,Oxygen FlowRate: 4 Device: Nasal Cannula (NC) Response: UnchangedSucceeded, 15:26,Depart Scene 15:26,BP: 175/92 M,PULSE: 96,RR: 22 R,SPO2: 97 Ox,ETCO2: ,BG: ,PAIN: ,GCS: , 15:35,BP: 160/87 M,PULSE: 96,RR: 22 R,SPO2: 100 Ox,ETCO2: ,BG: ,PAIN: ,GCS: , 15:40,At Destination 15:54,Call Closed Disclaimer v1.1 Copyright 2021 [employer] This EMS Care Summary contains data elements from the applicable legal record (which may be displayed differently). It is designed to provide pertinent information for the following purposes: continuity of care, clinical quality, and state data reporting. The complete legal record is available to ED staff and administrators of the receiving hospital in [employer] Patient Tracker. All data is provided "as is."
[~2021-09-14 15:46] MED LIST changes: +CHOLECALCIFEROL PO; +LEVOFLOXACIN500 MG PO; +METFORMIN HCL500 M3 PO; +PREDNISONE 20 M20 MG PO; +PRINIVIL40 MG PO; +PROAIR HFA8.5 GM
[2021-09-14 15:48] VITALS: BP 129/85
[2021-09-14 16:28] LABS: URINE BILIRUBIN NEGATIVE (Negative); URINE BLOOD NEGATIVE (Negative); URINE CLARITY CLEAR; URINE COLOR YELLOW; URINE GLUCOSE-RANDOM* TRACE (Negative); URINE KETONES NEGATIVE (Negative); URINE LEUKOCYTES-REFLEX NEGATIVE (Negative); URINE NITRITE-REFLEX NEGATIVE (Negative); URINE PROTEIN (DIPSTICK) NEGATIVE (Negative); URINE UROBILINOGEN 0.2 E.U./dl (0.2-1.0)
[2021-09-14 16:32] LABS: BASOPHILS 0.3 % (0.0-2.0); EOSINOPHILS 0.1 % (0.0-3.0); HEMATOCRIT 37.9 % (42.0-52.0); HEMOGLOBIN 12.5 gm/dL (14.0-18.0); LYMPHOCYTES 3.6 % (24.0-44.0); MCH 30.7 pg (26.0-34.0); MCHC 33.1 g/dL (28.0-37.0); MCV 92.9 fL (80.0-100.0); MONOCYTES 7.2 % (1.0-8.0); PLATELET COUNT 205 thou/uL (150-400); POLYS 88.8 % (36.0-66.0); RBC 4.08 mil/uL (4.50-6.00); RDW 14.3 % (10.5-14.5); WBC 11.3 thou/uL (4.0-11.0)
[2021-09-14 16:43] LABS: CALCIUM 10.4 mg/dL (8.5-10.1); POTASSIUM 4.2 mmol/L (3.5-5.1)
[2021-09-14 16:53] LABS: ALBUMIN 3.3 g/dL (3.4-5.0); TOTAL BILIRUBIN 0.6 mg/dL (0.2-1.0); TOTAL PROTEIN 6.4 g/dL (6.4-8.2)
[2021-09-15 05:18] VITALS: BP 161/85
[2021-09-15 06:13] LABS: ALBUMIN 3.1 g/dL (3.4-5.0); CALCIUM 9.8 mg/dL (8.5-10.1); CREATININE 1.7 mg/dL (0.7-1.3); DIRECT BILIRUBIN 0.1 mg/dL (<0.1-0.2); PHOSPHORUS 4.3 mg/dL (2.5-4.9); POTASSIUM 4.1 mmol/L (3.5-5.1); TOTAL BILIRUBIN 0.3 mg/dL (0.2-1.0); TOTAL PROTEIN 6.2 g/dL (6.4-8.2)
[2021-09-15 07:36] VITALS: BP 137/76
--- NOTE | 2021-09-15 07:39 | EKG ---
[address] [address] ELECTROCARDIOGRAM REPORT Name: JERO REEVES Room #: 170-1 ADM IN M.R.#: [id number] Admission: 09/14/21 Attend Phys: Dexter Cardona MD Discharge: Date of : 34 Report #: [id number] [facility] ED Test Date: 2021-09-14 Test Time: 16:11:45 Pat Name: JERO REEVES Department: Room: 170 Gender: M Kindergarten Classroom Teacher: cw : 1935 Requested By: Judith Thomas Order Number: [id number] MD: Felix Lerma Measurements Intervals [place] Rate: 93 P: 65 CA: 45 QRS: -13 QRSD: 132 T: 58 QT: 387 QTc: 482 Interpretive Statements Sinus rhythm Short CA interval Nonspecific intraventricular conduction delay Compared to ECG 09/08/2021 16:16:56 Short CA interval now present Intraventricular conduction delay now present ST (T wave) deviation now present Electronically Signed On 09-15-2021 7:39:33 CUSTOMER EXPERIENCE SPECIALIST by Felix Lerma [email or web address] <ELECTRONICALLY SIGNED> By: Felix Lerma MD, [facility] 09/15/21 0739 1611 1611 Felix Lerma MD, [facility] /EPI
[2021-09-15 11:44] LABS: MAGNESIUM 2.7 mg/dL (1.8-2.4)
[2021-09-15 12:55] LABS: BE(vivo) -0.3 mmol/L (-2 to +3); HCO3 26.7 mmol/L (22.0-26.0); PCO2 54.6 mmHg (35.0-45.0); PO2 82.8 mmHg (80.0-100.0)
[2021-09-15 12:57] LABS: pH 7.307 (7.360-7.450)
--- NOTE | 2021-09-15 14:34 | NUR ---
vascular access consult for central line placement per Dr Jimenez. consent signed and time out preformed prior to start with Samuel LIU. 7 FR triple lumen right IJ placed without difficulty. Patient tolerated well. Flushes and draws well. Guidewire removed intact. Positive bilateral lung slide post insertion. Xray to confirm placement. Okay to use central line.
--- NOTE | 2021-09-15 15:24 | NUR ---
CM REVIEWED CHART AND SPOKE WITH CARE TEAM. CM ATTEMTPED PC TO PT'S DTR SHANA AND LEFT VM. PT HAD DISCHARGED HOME WEDN[place]DAY TO [place] WITH [facility]. IT WAS INDICATED THAT PT HAD HOME O2 THROUGH [employer] MAINTAINABILITY ENGINEER. CHART INDICATED PT HAD A 4WW FOR HOME USE. PT READMITTED. CM FOLLOWING REGARDING DC PLANNING NEEDS. CARDIOLOGY CONSULTED. PT COVID+.
--- NOTE | 2021-09-15 16:13 | EKG ---
[address] [employer] [place] [address] ELECTROCARDIOGRAM REPORT Name: JERO REEVES Room #: 170-1 ADM IN M.R.#: [id number] Admission: 09/14/21 Attend Phys: Dexter Cardona MD Discharge: Date of : 34 Report #: [id number] [facility] ED Test Date: 2021-09-15 Test Time: 11:46:47 Pat Name: JERO REEVES Department: Room: 170 1 Gender: M Weeder Thinner: LESLIE : 1935 Requested By: Dexter Cardona Order Number: [id number] MD: Felix Lerma Measurements Intervals [place] Rate: 123 P: MI: QRS: -25 QRSD: 81 T: 52 QT: 329 QTc: 471 Interpretive Statements Atrial fibrillation Ventricular premature complex Borderline left axis deviation Low voltage, extremity leads Abnormal R-wave progression, early transition ST depression, probably rate related Baseline wander in lead(s) V2 Compared to ECG 09/14/2021 16:11:45 Ventricular premature complex(es) now present Low QRS voltage now present ST (T wave) deviation now present Electronically Signed On 09-15-2021 16:13:37 PUBLIC AID ELIGIBILITY ASSISTANT by Felix Lerma [email or web address] <ELECTRONICALLY SIGNED> By: Felix Lerma MD, FACC 09/15/21 1613 1146 1146 Felix Lerma MD, [facility] /EPI
--- NOTE | 2021-09-15 19:32 | NUR ---
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
[2021-09-16 06:33] LABS: ABSOLUTE NEUTROPHILS 9.4 thou/uL (1.4-8.2); HEMOGLOBIN 12.1 gm/dL (14.0-18.0); LYMPHOCYTES 3.7 % (24.0-44.0); MCH 31.2 pg (26.0-34.0); MCHC 32.7 g/dL (28.0-37.0); MCV 95.3 fL (80.0-100.0); PLATELET COUNT 158 thou/uL (150-400); POLYS 88.3 % (36.0-66.0); RBC 3.89 mil/uL (4.50-6.00); RDW 14.3 % (10.5-14.5); WBC 10.6 thou/uL (4.0-11.0)
[2021-09-16 06:50] LABS: D-DIMER 1.11 ug/mLFEU (0.19-0.50); INR 1.25; PROTIME 13.5 Seconds (10.5-12.1)
[2021-09-16 06:51] LABS: ALBUMIN 2.8 g/dL (3.4-5.0); ANION GAP 4 mmol/L (7-16); BUN 43 mg/dL (7-18); CALCIUM 9.6 mg/dL (8.5-10.1); CHLORIDE 108 mmol/L (98-107); CO2 36 mmol/L (21-32); CREATININE 1.6 mg/dL (0.7-1.3); DIRECT BILIRUBIN 0.2 mg/dL (<0.1-0.2); GLUCOSE 261 mg/dL (74-106); PHOSPHORUS 2.8 mg/dL (2.5-4.9); POTASSIUM 4.5 mmol/L (3.5-5.1); SGOT 15 U/L (15-37); SGPT 32 U/L (30-65); SODIUM 148 mmol/L (136-145); TOTAL BILIRUBIN 0.4 mg/dL (0.2-1.0); TOTAL PROTEIN 5.8 g/dL (6.4-8.2)
--- NOTE | 2021-09-16 08:07 | NUR ---
SHANA, DAUGHTER CALLED FOR UPDATE THIS AM
[2021-09-16 09:54] VITALS: BP 152/77
--- NOTE | 2021-09-16 16:28 | NUR ---
PT APPEARS TO BE ON HIGH FLOW O2 AT 8L THIS AFTERNOON. CM EMAINED PT'S DTR FOR HER TO SCAN AND EMAIL HIS DPOA PAPERWORK. CM FOLLOWING.
[2021-09-16 18:06] LABS: HIV ANTIBODY Non Reactive (Non Reactive)
[2021-09-16 19:59] VITALS: BP 119/86
--- NOTE | 2021-09-16 23:02 | HC ---
[facility] [place] [address] CONSULTATION Name: JERO REEVES Room #: 362-P [facility] IN M.R.#: [id number] Admission: 09/14/21 Attend Phys: Dexter Cardona MD Discharge: Date of : 34 Report #: [id number] THIS REPORT FOR: cc: Kain Nathan MD, Neal A. MD Geha,Anders Fish MD ~ DATE OF SERVICE: 09/15/2021 INFECTIOUS DISEASES CONSULTATION REASON FOR CONSULTATION: I was asked to evaluate concerning COVID-19, pneumonia and respiratory failure. HISTORY OF PRESENT ILLNESS: The patient is an 86-year-old who was initially hospitalized on 09/08/2021 with cough, weakness, diarrhea. He does have underlying history of COPD. He was previously vaccinated for COVID-19 with Moderna vaccine and reported a stroke after second dose. He was treated with remdesivir, Levaquin from 09/08 through 09/12. His oxygenation stabilized to 3 liters. He was then discharged on 09/13/2021 only to return within 24 hours with increased shortness of breath. His baseline oxygen is at 3 liters. He is found to be in atrial fibrillation with rapid ventricular response. This has been addressed by Pulmonary and Cardiovascular Medicine. He had normal perfusion lung scan. His chest x-ray had shown COPD and right lower lobe infiltrate. He denies any hemoptysis or purulent sputum production. No chest pain, palpitations or syncope. Denies any PND or orthopnea. No nausea, vomiting or diarrhea. Main complaint is just worsening dyspnea. REVIEW OF SYSTEMS: A 14-point review of system was negative other than what has been described above. ALLERGIES: PENICILLIN with syncope. MEDICATIONS: As noted on his MAR, which were reviewed. PAST MEDICAL HISTORY: Asthma, COPD, colon resection for colon cancer, skin cancer, cerebral aneurysm, cataract surgery, diabetes, stroke, hypertension, obstructive sleep apnea, hyperlipidemia. FAMILY HISTORY: No report of tuberculosis. SOCIAL HISTORY: Past smoker. No significant alcohol intake. No reported HIV, hepatitis or tuberculosis infection or exposure. PHYSICAL EXAMINATION: GENERAL: Afebrile and hemodynamically stable. He is tachycardic. Blood pressure was stable. He was with [place] [address] CONSULTATION Name: JERO REEVES Room #: 362-P [facility] IN .R.#: [id number] Admission: 09/14/21 Attend Phys: Dexter Cardona MD Discharge: Date of : 34 Report #: [id number] SKIN: With multiple ecchymoses. He had a verrucous lesion to his right forearm. No palpable adenopathy. HEENT: Eyes without scleral icterus. Mouth was dry. NECK: Supple. LUNGS: Coarse breath sounds in the right base posteriorly. HEART: Irregular, tachycardia. No murmur, gallop or rub. ABDOMEN: Soft and nontender with no hepatosplenomegaly or mass. GENITORECTAL: Not performed. EXTREMITIES: Without clubbing, cyanosis or edema. SPINE: Nontender. NEUROLOGIC: Cranial nerves intact. Strength in the upper and lower extremities was symmetric and within normal limits. IMPRESSION: COVID-19 pneumonia, now with progression of inflammatory stage of disease and respiratory failure. This is in the setting of underlying structural lung disease with chronic obstructive pulmonary disease and asthma. In addition, the patient has atrial fibrillation with rapid ventricular response, which has worsened his condition. He has underlying hypertension, acute kidney injury, diabetes, hyperlipidemia, previous stroke. RECOMMENDATION: We will continue with remdesivir, corticosteroids and add Actemra. He will require intensive care evaluation and treatment. I have discussed the case with Pulmonary Critical Care Service. He will continue his antibiotic coverage as well, pending culture results. Control atrial fibrillation. Monitor renal function closely and we will adjust his antibiotics accordingly. Follow serial laboratory studies and chest x-ray. <ELECTRONICALLY SIGNED> By: Anders Palomo MD 09/16/21 2302 [id number] Anders Palomo MD /nt
[2021-09-16 23:22] VITALS: BP 126/77
[2021-09-17 03:02] VITALS: BP 113/55
--- NOTE | 2021-09-17 03:35 | NUR ---
ADMISSION: PT ARRIVED ON UNIT AT APPROX 1999. PT IS ALERT & ORIENTED X 4 BUT EXPERIENCES SOME CONFUSION AT TIMES. PT HAS AN AMIODARONE DRIP RUNNING AT 0.5MG/HR FOR AFIB AND HR HAS BEEN RUNNING BETWEEN 98-125. PT HAS A HOOD IN PLACE WITH DARK RED URINE OUTPUT. PT HAS NO C/O OF PAIN, NAUSEA/VOMITTING. CURRENTLY NPO FOR PROCEDURE SCHEDULED LATER TODAY. VSS AFEBRILE. PT IS ABLE TO MAKE NEEDS KNOWN. CARE PLAN ACTIVATED AND INTERVENTIONS SET. WILL CONTINUE TO MONITOR.
[2021-09-17 04:52] LABS: ALBUMIN 2.4 g/dL (3.4-5.0); CALCIUM 9.4 mg/dL (8.5-10.1); CREATININE 1.5 mg/dL (0.7-1.3); DIRECT BILIRUBIN 0.1 mg/dL (<0.1-0.2); PHOSPHORUS 3.5 mg/dL (2.5-4.9); POTASSIUM 4.2 mmol/L (3.5-5.1); TOTAL BILIRUBIN 0.3 mg/dL (0.2-1.0); TOTAL PROTEIN 4.5 g/dL (6.4-8.2)
[2021-09-17 08:17] VITALS: BP 111/64
[2021-09-17 11:59] VITALS: BP 102/58
--- NOTE | 2021-09-17 15:20 | NUR ---
KOKO reviewed chart and spoke with nursing and attending physician. Pt remains in Enhanced Isolation due to COVID. Pt is afebrile and on 6L of O2. Pt is on IV abx, IV steorids and Remdesivir. Pt is on amio gtt per cardiology. KOKO spoke with pt's dtr, Kasey, via phone to provide update and discuss discharge planning. Kasey requests referral to be sent to [facility], as pt's PCP will be able to follow. KOKO explained isolation policy for [facility]. Pt's dtr verbalized understanding. KOKO faxed SNF referral and notified [facility] liaison of new referral. Anticipate discharge towards the end of the week/over the weekend. KOKO is following to assist as needed with discharge planning.
[2021-09-17 15:51] VITALS: BP 83/58
--- NOTE | 2021-09-17 18:23 | NUR ---
PT A/O X 4. THIS RN SPOKE WITH UROLOGY SAMPLE WASHER THIS AM AND SAMPLE WASHER TO DC NPO STATUS. SAMPLE WASHER INFORMED THIS RN TO KEEP HEPARIN DRIP ON HOLD, FLUSH HOOD Q SHIFT, AND INFORM UROLOGY IF HEMATURIA WORSENS. THIS RN MONITORED URINE OUTPUT, PT URINE LIGHT YELLOW MOST OF SHIFT. THIS RN FLUSHED HOOD PER ORDERS. PT NOW ON 4L NC. THIS RN SPOKE WITH PT DAUGHTER AND DAUGHTER INFORMED THIS RN PT BASELINE OXYGEN IS 3-4 L. PT COMPLAINS OF GENERALIZED PAIN. NO NEEDS AT THIS TIME. WILL CONTINUE TO MONITOR.
[2021-09-17 19:50] VITALS: BP 84/57
[2021-09-18 00:10] VITALS: BP 84/55
[2021-09-18 04:00] VITALS: BP 109/62
[2021-09-18 05:23] LABS: ALBUMIN 2.2 g/dL (3.4-5.0); CALCIUM 9.3 mg/dL (8.5-10.1); CREATININE 1.5 mg/dL (0.7-1.3); DIRECT BILIRUBIN 0.1 mg/dL (<0.1-0.2); PHOSPHORUS 3.4 mg/dL (2.5-4.9); POTASSIUM 4.1 mmol/L (3.5-5.1); TOTAL BILIRUBIN 0.2 mg/dL (0.2-1.0); TOTAL PROTEIN 4.4 g/dL (6.4-8.2)
--- NOTE | 2021-09-18 05:56 | NUR ---
ASSUMED PT CARE AT 1900. PT IS ALERT & ORIENTED X 4, IS CALM AND COOPERATIVE. PT'S BP HAS BEEN RUNNING LOW, SBP<90. THIS NURSE WAS NOTIFIED BY DAY RN THAT 500ML NS BOLUS WAS ADMINISTERED AND TO RECHECK BP. BP RE-CHECK SHOWED SBP<90. NOTIFIED ROUTE INSPECTOR AND RECEIVED ORDERS FOR 250ML NS BOLUS. SOON AFTER, SBP>90. HOOD FLUSHED AND YELLOW URINE OUTPUT WAS NOTED. AFIB ON TELE MONITOR. CURRENTLY ON 4L O2 NC AND O2 SATS > 95%. PT IS ABLE TO MAKE NEEDS KNOWN. CONTINUE WITH PLAN OF CARE.
[2021-09-18 07:36] VITALS: BP 108/63
[2021-09-18 11:31] VITALS: BP 92/60
--- NOTE | 2021-09-18 12:22 | NUR ---
KOKO reviewed chart and spoke with nursing and attending physician. Pt remains in Enhanced Isolation due to COVID. Pt is afebrile and on 3L of O2. PT is on IV abx, IV steroids and Remdesivir. KOKO spoke with Casi at [facility], who states they are able to accept pt when ready for discharge. Weekend discharge anticipated. KOKO updated attending physician. ST lujan ordered today regarding possible aspiration. KOKO spoke with pt's dtr, Kasey, via phone to provide update and discuss discharge plan. Kasey is aware and in agreement with discharge plan. Kasey states when pt is eventually discharged from [facility] [place], pt's dtr from [place] will be staying with pt for awhile. KOKO updated attending physician. KOKO is following to assist as needed with discharge planning.
[2021-09-18 16:50] VITALS: BP 92/59
--- NOTE | 2021-09-18 18:18 | NUR ---
PT A/O X 4. PT HAS SOME CONFUSION. NO COMPLAINTS OF PAIN THIS SHIFT. PTS LUNGS SOUND WORSE THAN YESTERDAY. PT NOW HAS COUGH WITH POOR COUGH EFFORT. THIS RN OBSERVED PT CHOKING ON WATER WHILE TAKING MORNING MEDS. SPEECH EVAL CONSULTED. PT NOW ON MECHANICAL CHOPPED, NECTAR THICK, NO STRAWS. PT STATES "I FELT LIKE I WAS DROWNING WHEN DRINKING WATER" AND "I AM SCARED TO DRINK BECAUSE I MIGHT CHOKE". PT NEEDS ENCOURAGEMENT TO DRINK IV FLUIDS DC'D. PT ALSO STATED TO RN "I FEEL LIKE I CANT TAKE A DEEP BREATH". NO BLOOD IN URINE THIS SHIFT. WILL CONTINUE TO MONITOR.
[2021-09-18 20:05] VITALS: BP 98/57
[2021-09-19 04:40] VITALS: BP 101/68
[2021-09-19 05:32] LABS: ABSOLUTE NEUTROPHILS 6.1 thou/uL (1.4-8.2); BASOPHILS 0.1 % (0.0-2.0); EOSINOPHILS 0.1 % (0.0-3.0); HEMOGLOBIN 10.2 gm/dL (14.0-18.0); LYMPHOCYTES 4.1 % (24.0-44.0); MCH 31.2 pg (26.0-34.0); MCV 94.6 fL (80.0-100.0); MONOCYTES 6.2 % (1.0-8.0); PLATELET COUNT 88 thou/uL (150-400); POLYS 89.5 % (36.0-66.0); RBC 3.28 mil/uL (4.50-6.00); WBC 6.8 thou/uL (4.0-11.0)
[2021-09-19 06:27] LABS: ALBUMIN 2.1 g/dL (3.4-5.0); CALCIUM 9.4 mg/dL (8.5-10.1); CREATININE 1.4 mg/dL (0.7-1.3); TOTAL BILIRUBIN 0.2 mg/dL (0.2-1.0); TOTAL PROTEIN 4.3 g/dL (6.4-8.2)
--- NOTE | 2021-09-19 07:36 | NUR ---
PT ON O2 AT 2L PER NC OVERNIGHT. DENIED ANY SOA OVERNIGHT. UP TO CHAIR AND SLEPT IN CHAIR. STATES HE FEELS HE IS BREATHING "ALRIGHT" THIS MORNING.
[2021-09-19 07:43] VITALS: BP 108/60
[2021-09-19 11:10] LABS: T-SPOT.TB Negative
[2021-09-19 11:24] VITALS: BP 103/58
--- NOTE | 2021-09-19 14:35 | NUR ---
KOKO reviewed chart and spoke with nursing and attending physician. Pt remains in Enhanced Isolation due to COVID. Pt is afebrile and on 2L of O2. Pt is on IV abx and IV steroids. Pt is progressing towards goals for discharge. [facility]end [facility] is anticipated. KOKO faxed clinical/therapy updates to [facility] and confirmed with admissions liaison, that pt will be able to be admitted on Wednesday or Wednesday. [facility] will provide transportation. Final discharge ppwk will need to be faxed to the facility and liaison to be contacted to coordinate discharge. KOKO spoke with pt's dtr, Kasey, via phone to provide update. Pt's dtr is aware and in agreement with discharge plan. Pt is on a mechanical soft diet and nectar thickened liquids. Staff to contact [facility] liaison when pt is ready for discharge. [facility] does not accept admissions after 1500 on the weekends. Chart will need to be copied. Nursing to call report. Pt's dtr, Kasey, to be notified of discharge time. KOKO is following to assist as needed with discharge planning. [facility]-- Admissions: [phone]
[2021-09-19 15:34] VITALS: BP 93/51
--- NOTE | 2021-09-19 17:29 | NUR ---
ASSUMED PATIENT CARE AT 0700. A/0 X4. ON CHAIR ALL DAY. AMBULATED IN ROOM WITH PT. SLOWLY TOWARDS POC GOALS.
[2021-09-19 19:59] VITALS: BP 91/56
[2021-09-20 04:18] VITALS: BP 100/53
[2021-09-20 04:58] LABS: HEMATOCRIT 32.8 % (42.0-52.0); HEMOGLOBIN 10.8 gm/dL (14.0-18.0); MCHC 32.8 g/dL (28.0-37.0); MCV 94.5 fL (80.0-100.0); RBC 3.47 mil/uL (4.50-6.00); RDW 14.3 % (10.5-14.5); WBC 9.3 thou/uL (4.0-11.0)
[2021-09-20 07:27] VITALS: BP 112/70
[2021-09-20 11:10] VITALS: BP 83/42
[2021-09-20 13:31] VITALS: BP 94/49
[2021-09-20 13:31] LABS: ABSOLUTE NEUTROPHILS 7.1 thou/uL (1.4-8.2); EOSINOPHILS 0.1 % (0.0-3.0); HEMATOCRIT 32.9 % (42.0-52.0); HEMOGLOBIN 10.7 gm/dL (14.0-18.0); LYMPHOCYTES 2.7 % (24.0-44.0); MCH 31.1 pg (26.0-34.0); MCHC 32.7 g/dL (28.0-37.0); MCV 95.2 fL (80.0-100.0); MONOCYTES 3.7 % (1.0-8.0); PLATELET COUNT 86 thou/uL (150-400); POLYS 93.5 % (36.0-66.0); RBC 3.45 mil/uL (4.50-6.00); RDW 14.5 % (10.5-14.5); WBC 7.6 thou/uL (4.0-11.0)
[2021-09-20 13:44] LABS: CALCIUM 9.4 mg/dL (8.5-10.1); CREATININE 1.5 mg/dL (0.7-1.3); POTASSIUM 4.8 mmol/L (3.5-5.1)
[2021-09-20 13:52] LABS: ALBUMIN 2.2 g/dL (3.4-5.0); MAGNESIUM 2.3 mg/dL (1.8-2.4); TOTAL BILIRUBIN 0.4 mg/dL (0.2-1.0); TOTAL PROTEIN 4.2 g/dL (6.4-8.2)
[2021-09-20 15:49] VITALS: BP 102/65
--- NOTE | 2021-09-20 18:44 | NUR ---
ASSUMED PATIENT CARE AT 0700. A/0 X4. BOLUS NS GIVEN FOR BP LOW. POOR APPATITE ONLT DRINK LIQUIDS. NOT TOWARDS POC GOALS.
[2021-09-20 19:16] VITALS: BP 96/59
[2021-09-21 03:09] VITALS: BP 111/70
[2021-09-21 07:03] LABS: ABSOLUTE NEUTROPHILS 9.4 thou/uL (1.4-8.2); EOSINOPHILS 0.1 % (0.0-3.0); HEMATOCRIT 33.2 % (42.0-52.0); HEMOGLOBIN 11.1 gm/dL (14.0-18.0); LYMPHOCYTES 3.9 % (24.0-44.0); MCH 31.3 pg (26.0-34.0); MCHC 33.4 g/dL (28.0-37.0); MCV 93.9 fL (80.0-100.0); MONOCYTES 5.5 % (1.0-8.0); PLATELET COUNT 102 thou/uL (150-400); POLYS 90.5 % (36.0-66.0); RBC 3.54 mil/uL (4.50-6.00); RDW 14.2 % (10.5-14.5); WBC 10.4 thou/uL (4.0-11.0)
[2021-09-21 07:16] LABS: CALCIUM 9.9 mg/dL (8.5-10.1); CREATININE 1.3 mg/dL (0.7-1.3); POTASSIUM 4.3 mmol/L (3.5-5.1)
[2021-09-21 07:59] VITALS: BP 111/72
--- NOTE | 2021-09-21 08:01 | NUR ---
PT PREFERS TO SLEEP IN CHAIR VERSUS BED. PT NOT HAPPY WITH NECTAR THICK LIQUIDS. FOLLOW COVID POC. BLOOD SUGARS IN LINE. BP SHOWED IMPROVEMENT. LABS DRAW OFF PICC AND WORKS WELL. HOURLY ROUNDING.
[2021-09-21 09:30] VITALS: BP 93/55
--- NOTE | 2021-09-21 09:52 | NUR ---
NOTED PATIENT HAD 12 BITS VT. BP 93/55. CALLED ROUTE SALES DELIVERY DRIVERS SUPERVISOR THAT CHECK MG+. PATIENT FEELS COULDN'T BREATH AT THAT TIME. WILL KEEP MONITOR.
[2021-09-21 12:02] VITALS: BP 100/80
[2021-09-21 12:49] LABS: FOLIC ACID 8.4 ng/mL (8.6-58.9)
[2021-09-21 16:39] VITALS: BP 107/65
[2021-09-21 20:03] VITALS: BP 95/65
[2021-09-22 03:05] VITALS: BP 121/63
[2021-09-22 04:06] LABS: GLYCOHEMOGLOBIN (HGB A1C) 7.5 % (4.8-5.6)
[2021-09-22 07:27] VITALS: BP 124/71
--- NOTE | 2021-09-22 10:15 | 2DMMODE ---
[facility] [place] [address] 2 D/M-MODE ECHOCARDIOGRAM Name: JERO REEVES Room #: 362-P ADM IN M.R.#: [id number] Admission: 09/14/21 Attend Phys: Dexter Cardona MD Discharge: Date of : 34 Report #: [id number] THIS REPORT FOR: cc: Kain Nathan MD, Neal A. MD Santiago, Patrick MD [facility] ~ APPROVED REPORT Study performed: 09/22/2021 09:33:37 EXAM: Comprehensive 2D, Doppler, and color-flow Echocardiogram Patient Location: Bedside Room #: 362 Status: routine BSA: 1.94 HR: 66 bpm BP: 126/71 mmHg Rhythm: NSR Other Information Study Quality: Technically Limited Technically limited study due to Covid 19. Indications Arrhythmia Atrial Fibrillation Aortic Valve AoV Peak Gallo.: 1.82 m/s AO Peak Gr.: 13.32 mmHg Left Ventricle The left ventricle is normal size. There is normal LV segmental wall motion. There is normal left ventricular wall thickness. Left ventricular systolic function is normal. The left ventricular ejection fraction is within the normal range. LVEF is 60-65%. This study is not technically sufficient to allow evaluation of the LV diastolic function. Right Ventricle The right ventricle is normal size. The right ventricular systolic function is normal. [facility] [employer] [place] [address] 2 D/M-MODE ECHOCARDIOGRAM Name: JERO REEVES Room #: 362-P ADM IN M.R.#: [id number] Admission: 09/14/21 Attend Phys: Nai Rodríguez Discharge: Date of : 34 Report #: [id number] [employer] The left atrium size is normal. The right atrium size is normal. Aortic Valve The aortic valve is normal in structure. The Aortic valve is sclerotic. No aortic regurgitation is present. There is no aortic valvular stenosis. Mitral Valve The mitral valve is normal in structure. Trace mitral regurgitation. No evidence of mitral valve stenosis. Tricuspid Valve The tricuspid valve is normal in structure. There is no tricuspid valve regurgitation noted. Pulmonic Valve The pulmonary valve is normal in structure. There is no pulmonic valvular regurgitation. Great Vessels The aortic root is normal in size. The inferior vena cava is not well visualized. Pericardium There is no pericardial effusion. <Conclusion> Normal left ventricular size/wall thickness Ejection fraction of 60% Normal right ventricular size/function Normal atrial size Normal aortic valve structure and function Trace mitral valve insufficiency No tricuspid valve insufficiency No pericardial effusion Normal aortic root size <ELECTRONICALLY SIGNED> By: Felix Lerma MD, [facility] 09/22/21 1014 1014 1014 Felix Lerma MD, FACC /INF
[2021-09-22 11:18] VITALS: BP 136/68
--- NOTE | 2021-09-22 11:50 | NUR ---
KOKO reviewed chart and spoke with nursing and attending physician. Pt remains in Enhanced Isolation due to COVID. Pt is afebrile and on 3L of O2. Pt is on IV steroids. Per attending, pt is ready for discharge to [facility] today. KOKO spoke with [facility] liaison, who states they are able to accept pt today. Wheelchair van transportation scheduled for 1400. KOKO spoke with pt's dtr, Kasey, via phone to provide update. Pt and dtr have cardiology questions. Pt had run of vtach last night. Echo ordered and Xarelto is on hold. KOKO discussed questions with attending physician who deferred to cardiology. KOKO updated pt's nurse. KOKO discussed with [facility] liaision, who states that they may not be able to admit pt tomorrow, if he is not ready to discharge today. KOKO is following to assist as needed with discharge planning.
[2021-09-22 15:36] VITALS: BP 121/61
--- NOTE | 2021-09-22 19:08 | NUR ---
Patient is alert and oriented x4. Patient is on enhanced precautions. Patient is on 3L of oxygen via nasal canula. Patient is CC/ Tele and has been running afib/ sinus rhythm this shift. Patient reports his last BM being on 09/19/21. Patient has a burks catheter in place with clody dark colored urine. Patient has a moderate amount of urine output. Patient gets up with one assist a walker and a gait belt. Patient has a right triple lumen IJ in place all lines are patent. The line with the white hub does not have good blood return. Patient will continue to be monitored.
[2021-09-22 19:16] VITALS: BP 112/59
[2021-09-23 03:55] VITALS: BP 121/65
--- NOTE | 2021-09-23 05:23 | NUR ---
PT ON O2 AT 3L PER NC OVERNIGHT. DENIED ANY SOA WHILE AT REST. LUNGS DIMINISHED THROUGHOUT, OCCASIONAL NONPRODUCTIVE COUGH. NO COMPLAINTS OVERNIGHT.
[2021-09-23 08:38] VITALS: BP 126/701
[2021-09-23] MEDS ORDERED: PACERONE 200 M200 M1 PO (11:19)
[2021-09-23] MEDS ORDERED: LANTUS SUBQ (11:19)
[2021-09-23] MEDS ORDERED: HUMALOG100 UNIT/1 SUBQ (11:19)
[2021-09-23] MEDS ORDERED: ATENOLOL 25MG T25 MG PO (11:19)
[2021-09-23] MEDS ORDERED: XARELTO15 MG PO (11:19)
[2021-09-23 11:41] VITALS: BP 119/69
--- NOTE | 2021-09-23 12:07 | NUR ---
DISCHARGE NOTE: KOKO reviewed chart and spoke with nursing and attending physician. Pt is medically stable for discharge to [facility] today. KOKO confirmed that [facility] has a bed for pt. Wheelchair van transportation scheduled for 1400 per facility's arrangements. KOKO spoke with pt's dtr, Kasey, via phone to discuss discharge. Kasey is aware and in agreement with plan. KOKO faxed discharge ppwk to [facility]. Confirmed info was received. Chart copy requested. Nursing provided with number to call report. KOKO updated [facility] liaison. No additional SW needs identified at this time. SW is available to assist should needs arise.
--- NOTE | 2021-09-23 13:14 | NUR ---
Patient is alert and orientd x4 this shift. Patient is on enhanced precautions. Patient is on 3L of oxygen via nasal canula. [facility] and has been running afib/ sinus rhthm this shift. Patient reports last BM was approximately 09/19/2021. Patient has a burks that is in place and patent. Patient takes his pills whole in apple sauce. Patient is an accucheck ACHS. Patient gets up with one assist to use the toilet. Patient has a right triple IJ that is patent and saline locked. Patient will continue to be monitored.
== END 2021-09-23 13:45 | DRG 871 ==
LOC: ER 15:46 → EROBS 17:21 → 3W 17:21 → EROBS 09-15 12:04 → 3W 09-16 19:37
PROVIDERS: Internal Medicine; Pediatrics; Physician Assistant; Specialist; ADMIT Hospitalist; ATTEND Hospitalist
PROC: XW033E5 Introduction of Remdesivir Anti-infective into Peripheral Vein, Percutaneous Approach, New Technology Group 5 (ICD-10-PCS; principal; 2021-09-14)
PROC: 02HV33Z Insertion of Infusion Device into Superior Vena Cava, Percutaneous Approach (ICD-10-PCS; 2021-09-15)
PROC: 5A09357 Assistance with Respiratory Ventilation, Less than 24 Consecutive Hours, Continuous Positive Airway Pressure (ICD-10-PCS; 2021-09-15)
PROC: 5A0935A Assistance with Respiratory Ventilation, Less than 24 Consecutive Hours, High Flow/Velocity Cannula (ICD-10-PCS; 2021-09-16)
DX: A41.9 Sepsis, unspecified organism (principal); U07.1 COVID-19; J12.82 Pneumonia due to coronavirus disease 2019; R65.21 Severe sepsis with septic shock; J80 Acute respiratory distress syndrome; K65.9 Peritonitis, unspecified; N17.9 Acute kidney failure, unspecified; E87.0 Hyperosmolality and hypernatremia; I48.20 Chronic atrial fibrillation, unspecified; K56.7 Ileus, unspecified; I47.1 Supraventricular tachycardia; I13.0 Hypertensive heart and chronic kidney disease with heart failure and stage 1 through stage 4 chronic kidney disease, or unspecified chronic kidney disease; J45.909 Unspecified asthma, uncomplicated; G47.33 Obstructive sleep apnea (adult) (pediatric); E78.5 Hyperlipidemia, unspecified; R53.81 Other malaise; N40.0 Benign prostatic hyperplasia without lower urinary tract symptoms; R31.0 Gross hematuria; I50.9 Heart failure, unspecified; R13.10 Dysphagia, unspecified; D64.9 Anemia, unspecified; D69.6 Thrombocytopenia, unspecified; E11.65 Type 2 diabetes mellitus with hyperglycemia; E11.22 Type 2 diabetes mellitus with diabetic chronic kidney disease; J43.9 Emphysema, unspecified; N18.30 Chronic kidney disease, stage 3 unspecified; I25.10 Atherosclerotic heart disease of native coronary artery without angina pectoris; Z79.01 Long term (current) use of anticoagulants; Z88.0 Allergy status to penicillin; Z86.73 Personal history of transient ischemic attack (TIA), and cerebral infarction without residual deficits; Z98.49 Cataract extraction status, unspecified eye; Z85.038 Personal history of other malignant neoplasm of large intestine; Z87.891 Personal history of nicotine dependence; Z99.81 Dependence on supplemental oxygen; Z85.46 Personal history of malignant neoplasm of prostate; Z95.5 Presence of coronary angioplasty implant and graft; Z79.82 Long term (current) use of aspirin; Z79.899 Other long term (current) drug therapy
CPT/HCPCS: 10080; 10879

== ENCOUNTER 2021-10-21 07:56 | Inpatient (IN) | payer OTHER, BC ==
[~2021-10-21] VITALS: Ht 170.2 cm; Wt 89.4 kg
[2021-10-21] VITALS (14 sets, daily range): BP systolic 67–157; BP diastolic 42–89
--- NOTE | ~2021-10-21 | EMS ---
[address] [address] EMS Patient Care Report Name: JERO REEVES [id number] Admission: 10/21/21 Attend Phys: Discharge: Date of : 34 Report #: [id number] THIS REPORT FOR: //name// Report Transmitted: 10/21/2021 09:38 EMS Care Summary [facility] MED-ACT Incident [id number] @ 10/21/2021 07:03 Incident Location [address] [place] [address] Patient JERO REEVES Male, 86 Years 1935 Patient Address [address] [place] [address] Patient History Chronic Obstructive Pulmonary Disease (COPD),Diabetes,Hypertension (HTN),Stroke/CVA,Hyperlipidemia,Novel Coronavirus (COVID-19), Patient Allergies Penicillin allergy, Patient Medications Silodosin, Lisinopril, ASA, Carisoprodol, Furosemide, Spironolactone, Prednisone, Atorvastatin, Singulair, Vitamin D, Metoprolol, Levofloxacin, Amlodipine, Albuterol, Metformin, Carvedilol, Chief Complaint Fall Disposition Transported No Lights/[place] Reason Falls Transported To [facility] [address] [place] [address] EMS Patient Care Report Name: JERO REEVES Room #: [facility]#: [id number] Admission: 10/21/21 Attend Phys: Discharge: Date of : 34 Report #: [id number] Narrative Patient found sitting upright in the bathroom next to the toilet being supported by [place] deputy fire marshal from [employer] . Patient had a 3 to 4 inch diameter skin tear to his left forearm area with bleeding self controlled. Squad medics we???re about to apply a 4 x 4 dressing secured with a ermelinda bandage. Nursing staff reports that the last time patient was seen was approximately 630. They came in at seven and found him found him out on the floor in the bathroom. Patient reports that he doesn???t remember falling just remembers standing up from the toilet and then waking up on the ground. Patient denies any nausea, vomiting, head neck or back pain at this time. Patient was assisted to his feet and then to the ambulance cot. During assistance patient became unresponsive and had a syncopal episode. EMS staff was able to pick patient up and placed patient on cot in the supine position. EMS then placed patient in Trendelenburg position. After being placed in a supine position with feet elevated patient regain consciousness and was without complaint. Patient was secured with seat belts and covered with a blanket for warmth. Patient was moved to the ambulance without incident. Per nursing staff patient???s hospital of choice was [facility] patient was transported in position of comfort to [place]. EMS alerted [facility] on Kiddy system prior to arrival. Patient delivered to ER bed 11 without change. Patient was lifted to hospital bed via four person sheet lift and secured with locked side rails in the upright position. Lead support team member gave report to receiving RN transferring patient and care to hospital staff. Initial Vitals @07:23P: 159,SpO2: 87,AL Suspected: false @07:28P: 119,SpO2: 98,AL Suspected: false @07:49P: 114,SpO2: 98,AL Suspected: false @07:50P: 131,SpO2: 98,AL Suspected: false @07:42P: 118,BP: 93/52,SpO2: 97, @07:23P: 100,R: 10,BP: 82/52,Pain: 0/10,GCS: 4,Temp: 97.5F,Glucose: 119,SpO2: 93,Revised Trauma: 8, @07:49P: 124,R: 16,BP: 95/58,Pain: 0/10,GCS: 15,SpO2: 97,Revised Trauma: 12, @07:29P: 123,R: 16,BP: 118/69,Pain: 0/10,GCS: 15,SpO2: 79,Revised Trauma: 12, Impression Syncope / Fainting Procedures @07:28 12-Lead ECG Response: UnchangedSucceeded @07:50 12-Lead ECG Response: UnchangedSucceeded @07:30 Oxygen FlowRate: 4 Device: Nasal Cannula (NC) Response: ImprovedSucceeded [facility] [address] [place] [address] EMS Patient Care Report Name: BERHANEJERO HEWITT [facility] [id number] Admission: 10/21/21 Attend Phys: Discharge: Date of : 34 Report #: [id number] @07:40 IV Therapy - Saline Lock 10cc (20 ga) Site: Hand-Right Response: UnchangedSucceeded @07:15 Bandaging Response: UnchangedSucceeded @07:15 Bleeding Control Response: ImprovedSucceeded Timeline 07:01,Call Received 07:01,Psap Call 07:03,Dispatched 07:05,En Route 07:10,On Scene 07:14,At Patient 07:15,Bandaging,Response: UnchangedSucceeded, 07:15,Bleeding Control,Response: ImprovedSucceed, 07:23,BP: 82/52 M,PULSE: 100,RR: 10 R,SPO2: 93 Ox,ETCO2: ,B,PAIN: 0,GCS: 4, 07:23,BP: / M,PULSE: 159,RR: R,SPO2: 87 Ox,ETCO2: ,BG: ,PAIN: ,GCS: , 07:28,12-Lead ECG,Response: UnchangedSucceeded, 07:28,BP: / M,PULSE: 119,RR: R,SPO2: 98 Ox,ETCO2: ,BG: ,PAIN: ,GCS: , 07:29,BP: 118/69 M,PULSE: 123,RR: 16 R,SPO2: 79 Ox,ETCO2: ,BG: ,PAIN: 0,GCS: 15, 07:30,Oxygen FlowRate: 4 Device: Nasal Cannula (NC) Response: ImprovedSucc, 07:40,IV Therapy - Saline Lock 10cc 20 ga Site: Hand-Right,Response: UnchangedSucceeded, 07:42,Depart Scene 07:42,BP: 93/52 M,PULSE: 118,RR: R,SPO2: 97 Ox,ETCO2: ,BG: ,PAIN: ,GCS: , 07:49,BP: / M,PULSE: 114,RR: R,SPO2: 98 Ox,ETCO2: ,BG: ,PAIN: ,GCS: , 07:49,BP: 95/58 M,PULSE: 124,RR: 16 R,SPO2: 97 Ox,ETCO2: ,BG: ,PAIN: 0,GCS: 15, 07:50,12-Lead ECG,Response: UnchangedSucceeded, 07:50,BP: / M,PULSE: 131,RR: R,SPO2: 98 Ox,ETCO2: ,BG: ,PAIN: ,GCS: , 07:50,At Destination 08:05,Call Closed Disclaimer v1.1 Copyright 2021 [employer] This EMS Care Summary contains data elements from the applicable legal record (which may be displayed differently). It is designed to provide pertinent information for the following purposes: continuity of care, clinical quality, and state data reporting. The complete legal record is available to ED staff and administrators of the receiving hospital in [employer] Patient Tracker. All data is provided "as is."
[~2021-10-21 07:56] MED LIST changes: +ATENOLOL 25MG T25 MG PO; +HUMALOG100 UNIT/1 SUBQ; +LANTUS SUBQ; +PACERONE 200 M200 M1 PO; +XARELTO15 MG PO
--- NOTE | 2021-10-21 08:22 | EKG ---
[address] [email or web address] [address] ELECTROCARDIOGRAM REPORT Name: JERO REEVES Room #: [facility]#: [id number] Admission: Attend Phys: Discharge: Date of : 34 Report #: [id number] [facility] ED Test Date: 2021-10-21 Test Time: 07:58:56 Pat Name: JERO REEVES Department: Room: Gender: M Scrap Burner: : 1935 Requested By: Riri Rosas Order Number: [id number] MD: Nathan Uribe Measurements Intervals [place] Rate: 121 P: GA: QRS: 6 QRSD: 82 T: 54 QT: 333 QTc: 473 Interpretive Statements Atrial fibrillation Borderline low voltage, extremity leads Abnormal R-wave progression, early transition Borderline ST depression, diffuse leads Compared to ECG 09/15/2021 11:46:47 No significant change was found Electronically Signed On 10-21-2021 8:22:07 BUS COMPANY MANAGER by Nathan Uribe [email or web address] <ELECTRONICALLY SIGNED> By: Nathan Uribe MD, [facility] 10/21/21 0822 [id number] Nathan Uribe MD, FACC /EPI
[2021-10-21 08:25] LABS: ABSOLUTE NEUTROPHILS 5.2 thou/uL (1.4-8.2); BASOPHILS 0.2 % (0.0-2.0); EOSINOPHILS 0.4 % (0.0-3.0); HEMATOCRIT 22.2 % (42.0-52.0); HEMOGLOBIN 7.5 gm/dL (14.0-18.0); LYMPHOCYTES 21.1 % (24.0-44.0); MCH 32.4 pg (26.0-34.0); MCHC 33.6 g/dL (28.0-37.0); MCV 96.4 fL (80.0-100.0); MONOCYTES 11.2 % (1.0-8.0); PLATELET COUNT 162 thou/uL (150-400); POLYS 67.1 % (36.0-66.0); RDW 17.9 % (10.5-14.5); WBC 7.7 thou/uL (4.0-11.0)
[2021-10-21] MEDS ORDERED: LASIX 40 MG TAB40 MG PO (10:11)
--- NOTE | 2021-10-21 10:20 | NUR ---
STAFF CALLED ELISA TAYLOR FOR CONCENTS ON BLOOD AND CENTRAL LINE INSERTION.
--- NOTE | 2021-10-21 12:34 | NUR ---
A LEFT IJ CENTRAL LINE WAS PLACED PER HOSPITAL POLICY AFTER A BEDSIDE TIMEOUT WAS COMPLETED. THE CENTRAL LINE WAS ATTEMPTED X2 ON THE RIGHT IJ ANDF UNABLE TO ADVANCE WIRE ON MULTIPLE ATTEMPTS. THE CENTRAL LINE WAS SUCCESSFUL ON THE LEFT IJ ON THE 2ND ATTEMPT. A STAT CHEST XRAY SHOWED LINE IN IN THE SVC AND RELEASED FOR USE
[2021-10-21 15:07] LABS: URINE BILIRUBIN NEGATIVE (Negative); URINE BLOOD NEGATIVE (Negative); URINE CLARITY CLEAR; URINE COLOR YELLOW; URINE GLUCOSE-RANDOM* NEGATIVE (Negative); URINE KETONES TRACE (Negative); URINE LEUKOCYTES NEGATIVE (Negative); URINE NITRITE NEGATIVE (Negative); URINE PROTEIN (DIPSTICK) NEGATIVE (Negative); URINE SPECIFIC GRAVITY 1.015 (1.005-1.035); URINE UROBILINOGEN 0.2 E.U./dl (0.2-1.0)
[2021-10-21 16:59] LABS: ALBUMIN 2.4 g/dL (3.4-5.0); TOTAL BILIRUBIN 0.3 mg/dL (0.2-1.0); TOTAL PROTEIN 4.4 g/dL (6.4-8.2)
[2021-10-21 17:09] LABS: POTASSIUM 4.5 mmol/L (3.5-5.1)
[2021-10-21 17:10] LABS: CALCIUM 9.5 mg/dL (8.5-10.1); CREATININE 1.7 mg/dL (0.7-1.3)
--- NOTE | 2021-10-21 18:24 | NUR ---
PT ARRIVED ON THE UNIT AT 1545, HE CAME TO US WITH A PAIR OF DIRTY SHORTS AND A T-SHIRT. HE IS MAKING PROGRESS TOWARDS HIS GOALS.
--- NOTE | 2021-10-21 21:41 | NUR ---
LEVOPHED TURNED OFF, PT'S B/P STABLE @ PRESENT
[2021-10-22] VITALS (24 sets, daily range): BP systolic 116–165; BP diastolic 69–97
[2021-10-22 05:29] LABS: HEMATOCRIT 23.8 % (42.0-52.0); HEMOGLOBIN 8.1 gm/dL (14.0-18.0); MCH 32.4 pg (26.0-34.0); MCHC 34.2 g/dL (28.0-37.0); MCV 94.6 fL (80.0-100.0); RBC 2.52 mil/uL (4.50-6.00); RDW 17.5 % (10.5-14.5)
[2021-10-22 06:07] LABS: GLYCOHEMOGLOBIN (HGB A1C) 6.4 % (4.8-5.6)
[2021-10-22 06:22] LABS: CALCIUM 8.7 mg/dL (8.5-10.1); CREATININE 1.3 mg/dL (0.7-1.3); POTASSIUM 4.8 mmol/L (3.5-5.1)
--- NOTE | 2021-10-22 09:21 | NUR ---
PT HAS FREQUENT SMALL AMOUNTS OF URINARY OUTPUT WITH A FEW DROPS OF BLOOD PRESENT IN EACH OCCURRENCE.
[2021-10-22 09:58] LABS: % SATURATION 15 % (20-39); IRON 25 ug/dL (65-175); TIBC 163 ug/dL (250-450)
--- NOTE | 2021-10-22 11:46 | NUR ---
SPOKE WITH GI RN OVER THE PHONE REGARDING PT PO MEDICATION AMIODARONE AND IF HE CAN HAVE IT WITH A SMALL SIP OF WATER SINCE HE'S NPO, GOT THE OK TO ADMINSTER MEDICATION BY MOUTH.
--- NOTE | 2021-10-22 11:58 | EKG ---
[address] [address] ELECTROCARDIOGRAM REPORT Name: JERO REEVES Room #: 241-P ADM IN M.R.#: [id number] Admission: 10/21/21 Attend Phys: Dean Gutierrez MD Discharge: Date of : 34 Report #: [id number] [facility] Test Date: 2021-10-22 Test Time: 09:09:17 Pat Name: JERO REEVES Department: Room: 241 P Gender: M Regional Sales Executive: : 1935 Requested By: Ngozi Pablo Order Number: [id number] MD: Felix Lerma Measurements Intervals [place] Rate: 101 P: 49 MT: 190 QRS: 1 QRSD: 76 T: 15 QT: 342 QTc: 444 Interpretive Statements Sinus tachycardia Abnormal R-wave progression, early transition Compared to ECG 10/21/2021 07:58:56 Atrial fibrillation no longer present ST (T wave) deviation no longer present Electronically Signed On 10-22-2021 11:57:39 SPECIAL OFFICER AUTOMAT by Felix Lerma [email or web address] <ELECTRONICALLY SIGNED> By: Felix Lerma MD, [facility] 10/22/21 1157 [phone] Felix Lerma MD, [facility] /EPI
--- NOTE | 2021-10-22 13:08 | NUR ---
PT TRANSPORTED TO GI LAB AT THIS TIME.
--- NOTE | 2021-10-22 16:41 | NUR ---
Pt readmited from SNF at [facility] where he was rehabing after having covid. He is from [facility]. Pt is being treated in the ICU for anemia and sepsis. EGD today. Clinical update faxed to admissions at [facility] and they can likely accept him back when medically stable. Pt remains in ICU today. Will follow.
--- NOTE | 2021-10-22 18:11 | NUR ---
SPOKE WITH DAUGHTER SHANA TWICE TODAY OVER THE PHONE, PROVIDING HER WITH STATUS UPDATES. PT ATE 90% OF HIS DINNER AFTER BEING NPO, IS VERY PLEASANT. PT CONTINUES TO HAVE TRACE AMOUNTS OF BLOOD IN HIS URINE. PT HR AND B/P UNDER CONTROL WITHOUT IV MEDICATIONS. PT PERFORMED IN BED EXERCISES TODAY WITH PT.
[2021-10-23] VITALS (18 sets, daily range): BP systolic 118–175; BP diastolic 68–107
[2021-10-23 08:53] LABS: HEMATOCRIT 25.4 % (42.0-52.0); HEMOGLOBIN 8.5 gm/dL (14.0-18.0); MCH 31.9 pg (26.0-34.0); MCHC 33.5 g/dL (28.0-37.0); MCV 95.1 fL (80.0-100.0); RBC 2.67 mil/uL (4.50-6.00); RDW 17.2 % (10.5-14.5); WBC 6.9 thou/uL (4.0-11.0)
--- NOTE | 2021-10-23 11:34 | P ---
[facility] [address] [place] [address] PROCEDURE REPORT Name: JERO REEVES Room #: 241-P [facility] IN ..#: [id number] Admission: 10/21/21 Attend Phys: Dean Gutierrez MD Discharge: Date of : 34 Report #: [id number] THIS REPORT FOR: cc: Kain Nathan MD, Neal A. MD McElhinney, Christian C. MD ~ DATE OF SERVICE: 10/22/2021 PROCEDURE PERFORMED: Upper endoscopy with small bowel enteroscopy. HISTORY OF PRESENT ILLNESS: The patient is an 86-year-old male who was admitted yesterday through the Emergency Room after a fall, was noted to be anemic with a hemoglobin of 7.5. He had recent black stools, had been started on Xarelto recently and this was held in the last few days. He is also on aspirin and also on Nexium. He does complain of intermittent dysphagia. He underwent a transfusion of 1 unit of packed cells yesterday. His hemoglobin today is 8.1. Plan is for upper endoscopy. DESCRIPTION OF PROCEDURE: The risks and benefits of the procedure were explained to the patient, those risks including but not limited to bleeding, perforation and the risk of sedation. He understood these risks and gave informed consent. Sedation was given using propofol per anesthesia. Next, using a standard Olympus upper endoscope, the scope was placed in the patient's mouth and advanced under direct vision through the esophagus, stomach and into the third portion of the duodenum. The esophagus was normal throughout. The GE junction was normal. Overall, the gastric mucosa was normal. The pylorus was normal and patent. The duodenal bulb was normal. As I advanced the scope into the first portion of the duodenum, there was evidence of some bright red blood in this area. Multiple washings and aspirations were performed. I was not able to see the area that was bleeding. I advanced the scope as far as possible into the second and possible third portion of the duodenum. There still seemed to be a small amount of bright red blood in the folds; therefore, I brought the scope back into the patient's stomach and performed a Savary dilation of the esophagus and then switched to colonoscope. The Savary dilator was advanced through the scope, leaving the dilator in place. The scope was then withdrawn and 51-Filipino Savary dilation of the esophagus was performed without difficulty. The wire and dilator removed. The scope was reintroduced into the patient's stomach. There was no evidence of mucosal tear after dilation. At this point, the standard upper endoscope was removed and a pediatric Olympus colonoscope was then used. I was able to advance this through his esophagus, stomach and well into the jejunum at which point 4 total AVMs were noted, 1 in particular with bright red blood and a small clot in the area. All 4 were treated with 7-Filipino bipolar cautery. There was no further bleeding noted after cauterization. The other 3 did not appear to be bleeding. However, there was blood nearby. Again, all AVMs that were visualized today were cauterized. At this point, no further blood was noted in the area. The scope was then withdrawn and the procedure [facility] [address] [place] [address] PROCEDURE REPORT Name: JERO REEVES Room #: 241-P [facility] IN M.R.#: [id number] Admission: 10/21/21 Attend Phys: Dean Gutierrez MD Discharge: Date of : 34 Report #: [id number] terminated. The patient tolerated the procedure well. IMPRESSION: 1. 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 No further bleeding was noted. 2. Otherwise, normal upper endoscopy. RECOMMENDATIONS: 1. Observe the patient post-dilation. 2. Continue PPI therapy. 3. Continue to hold anticoagulation therapy. 4. Continue to monitor hemoglobin closely. If he has further drop in his hemoglobin, may need to consider M2 capsule endoscopy at that point. Thank you for allowing me to participate in his care. <ELECTRONICALLY SIGNED> By: Dell Aguilar MD 10/23/21 1134 1330 Dell Aguilar MD /nt
--- NOTE | 2021-10-23 18:32 | NUR ---
PATIENT TRANSFERRED TO [facility], DAUGHTER SHANA NOTIFIED OVER THE PHONE
[2021-10-24 03:36] VITALS: BP 142/92
[2021-10-24 05:17] LABS: MCH 32.5 pg (26.0-34.0); MCHC 34.8 g/dL (28.0-37.0); MCV 93.4 fL (80.0-100.0); RBC 2.46 mil/uL (4.50-6.00); RDW 16.5 % (10.5-14.5); WBC 6.1 thou/uL (4.0-11.0)
--- NOTE | 2021-10-24 07:52 | NUR ---
Patient making ellen progress towards outcome goals. Vital signs and rhythm stable. Left fore arm and left top of foot wounds documented and photographed. Patients states he came with these wounds. Right lower leg, right hand, left elbow weepy. Mepilex applied to left elbow and right hand. Bilateral legs kerlix/major wrap. Left forearm skin tear from fall redressed vaseline dressing and kerlix. High fall risks, fall precautions in place.
[2021-10-24 07:56] VITALS: BP 205/137
[2021-10-24 08:01] VITALS: BP 156/98
[2021-10-24 08:02] LABS: CALCIUM 9.5 mg/dL (8.5-10.1); CREATININE 1.3 mg/dL (0.7-1.3); MAGNESIUM 1.5 mg/dL (1.8-2.4); POTASSIUM 4.2 mmol/L (3.5-5.1)
[2021-10-24 11:01] VITALS: BP 127/71
[2021-10-24 12:46] LABS: URINE BILIRUBIN NEGATIVE (Negative); URINE BLOOD 1+ (Negative); URINE CLARITY CLEAR; URINE COLOR YELLOW; URINE GLUCOSE-RANDOM* TRACE (Negative); URINE KETONES NEGATIVE (Negative); URINE NITRITE-REFLEX NEGATIVE (Negative); URINE PROTEIN (DIPSTICK) NEGATIVE (Negative); URINE SPECIFIC GRAVITY 1.015 (1.005-1.035); URINE UROBILINOGEN 0.2 E.U./dl (0.2-1.0)
[2021-10-24 12:59] LABS: URINE LEUKOCYTES-REFLEX 1+ (Negative)
[2021-10-24 13:23] LABS: BACTERIA-REFLEX 1-9 Few /HPF (None Seen); CASTS None Seen /LPF (None Seen); CRYSTALS None Seen /LPF (None Seen); SQUAMOUS None Seen /LPF (0-3); URINE RBC 3-10 Few /HPF (NONE SEEN); URINE WBC-REFLEX 0-5 Rare /HPF (0-5)
--- NOTE | 2021-10-24 14:20 | NUR ---
KOKO reviewed chart and spoke with nursing and attending physician. Pt was transferred to from ICU. Pt is progressing towards goals for discharge. Pt is medically stable for discharge today. KOKO contacted [facility] SNF liaison to check bed availability. [facility] has not received clinical/therapy info yet. KOKO faxed referral. Confirmed info was received. Request made for additional therapy notes and to find out if pt will d/c on Enbrel. KOKO contacted attending physician regarding Enbrel. Awaiting response at this time. Awaiting confirmation of acceptance back to [facility] SNF at this time. KOKO left voice message for pt's dtr, Kasey, to provide update and discuss plan to [facility]. KOKO is following to assist as needed with discharge planning.
[2021-10-24 15:18] VITALS: BP 153/93
--- NOTE | 2021-10-24 19:01 | NUR ---
ASSUMED PATIENT CARE AT 0700. A/O X4. NO SOB NOTED. UP WITH TO CHAIR. WOUND CARE NURSE CAME DID DRESSING CHANGE, PROGRESSING TOWARDS POC GOALS.
[2021-10-24 19:16] VITALS: BP 125/81
--- NOTE | 2021-10-24 20:26 | NUR ---
PT UP IN CHAIR. BLE LEG WRAPS INTACT, PEDAL EDEMA +3. LFA DAVINA WRAP INTACT. LIJ INTACT. LUNGS DIMINISHED, SBA TO TRANSFER. PT PROVIDED HS SNACK. CHAIR ALARM ON.
[2021-10-25 03:53] VITALS: BP 170/96
[2021-10-25 05:46] LABS: HEMATOCRIT 24.7 % (42.0-52.0); HEMOGLOBIN 8.6 gm/dL (14.0-18.0); MCHC 35.1 g/dL (28.0-37.0); RBC 2.62 mil/uL (4.50-6.00); RDW 17.1 % (10.5-14.5); WBC 4.6 thou/uL (4.0-11.0)
[2021-10-25 05:53] LABS: CALCIUM 9.7 mg/dL (8.5-10.1); CREATININE 1.2 mg/dL (0.7-1.3); MAGNESIUM 1.9 mg/dL (1.8-2.4); POTASSIUM 3.8 mmol/L (3.5-5.1)
[2021-10-25 07:20] VITALS: BP 147/94
[2021-10-25 11:16] VITALS: BP 141/81
[2021-10-25 15:11] VITALS: BP 181/96
--- NOTE | 2021-10-25 18:08 | NUR ---
ASSUMED PATIENT CARE AT 0700. A/O/X4. NO SOB NOTED. GENERLIZED EDEMA. SLOWLY TOWARDS POC GOALS.
[2021-10-25 19:42] VITALS: BP 123/74
[2021-10-26 02:11] LABS: HEMATOCRIT 24.3 % (42.0-52.0); HEMOGLOBIN 8.2 gm/dL (14.0-18.0); MCH 32.4 pg (26.0-34.0); MCHC 33.9 g/dL (28.0-37.0); MCV 95.6 fL (80.0-100.0); RBC 2.55 mil/uL (4.50-6.00); RDW 17.2 % (10.5-14.5); WBC 5.1 thou/uL (4.0-11.0)
[2021-10-26 02:42] LABS: CALCIUM 9.7 mg/dL (8.5-10.1); CREATININE 1.5 mg/dL (0.7-1.3); MAGNESIUM 1.8 mg/dL (1.8-2.4); POTASSIUM 3.9 mmol/L (3.5-5.1)
[2021-10-26 04:37] VITALS: BP 176/91
--- NOTE | 2021-10-26 06:20 | NUR ---
PATIENT IS ALERT AND ORIENTED X4. HE IS ON 1L OF OXYGEN WHEN AWAKE AND 2L OF OXYGEN WHEN HE IS RESTING. PATIENT IS CC/TELE THIS SHIFT. PAIENT HAS UNN SINUS RHYTHM THIS SHIFT. PATIENT HAD A BM ON 10/25/21. PATIENT HAS DRESSINGS TO HIS LEFT FOREARM AND LEFT FOOD BOTH DRESSINGS ARE CLEAN DRY AND INTACT. PATIENTS BOTTOM IS RED. BARRIER CREAM IS APPLIED. PATIENT HAS A LEFT TRIPLE LUMEN IJ. ALL THREE LUMENS ARE PATENT WITH GOOD BLOOD RETURN AND SALINE LOCKED. PATIENT WILL CONTINUE TO BE MONITORED.
[2021-10-26 07:07] VITALS: BP 153/80
[2021-10-26 16:55] VITALS: BP 141/73
[2021-10-26 19:14] VITALS: BP 126/68
--- NOTE | 2021-10-26 19:20 | NUR ---
ASSUMED PATIENT CARE AT 0700. A/0 X4. VSS. SLOWLY TOWADS POC GOALS.
[2021-10-27 04:53] LABS: CALCIUM 9.5 mg/dL (8.5-10.1); CREATININE 1.2 mg/dL (0.7-1.3); MAGNESIUM 1.9 mg/dL (1.8-2.4); POTASSIUM 3.6 mmol/L (3.5-5.1)
--- NOTE | 2021-10-27 06:14 | NUR ---
Patient is alert and oriented x4. Patient is on room air. Patient is cc/ tele and has been running sinus rhythm this shift. Patient is continent of urine. Patient has bandages on left arm and left foot. Dressings are clean dry and intact. Patient has a right triple lumen IJ. All three lumens are patent with good blood return. Patient will continue to be monitored.
[2021-10-27 07:27] VITALS: BP 152/88
--- NOTE | 2021-10-27 13:42 | NUR ---
DISCHARGE NOTE: KOKO reviewed chart and spoke with nursing and attending physician. Pt is medically stable for discharge to post-acute care today. [facility] consult ordered. KOKO discussed case with [facility] access liaison, who states they are able to accept pt and can admit pt today. KOKO notified attending physician. Requested discharge orders. KOKO met with pt at bedside to discuss discharge plan. Pt is agreeable with going to [facility]. Pt states he is wanting to get back home soon. Pt resideds in [place] at [facility]. KOKO spoke with pt's dtr, Kasey, via phone to provide update. Kasey is agreeable with plan. Pt will return to his [place] apt with services. [facility] that he is eligible for. Pt has good family support. Kasey to be back in in a couple of weeks. KOKO informed Kasey of [facility] rehab team conferences that are held on afternoons. Kasey to be updated after team conference to discuss discharge timeframe. KOKO updated pt's nurse. Pt to discharge to [facility] later today. Rehab CM to follow and assist as needed with discharge planning.
[2021-10-27] MEDS ORDERED: PACERONE 200 M200 M1 PO (13:54)
[2021-10-27] MEDS ORDERED: ATENOLOL 25MG T25 MG PO (13:54)
[2021-10-27] MEDS ORDERED: BENICAR40 MG PO (13:54)
[2021-10-27] MEDS ORDERED: FOLIC ACID1 MG PO (13:54)
[2021-10-27] MEDS ORDERED: B-12500 MCG PO (13:54)
[2021-10-27] MEDS ORDERED: MUCINEX600 MG PO (13:54)
[2021-10-27] MEDS ORDERED: NORVASC5 MG PO (13:54)
[2021-10-27] MEDS ORDERED: PREDNISONE 10 M10 M1 PO (13:56)
[2021-10-27 17:24] VITALS: BP 123/74
== END 2021-10-27 19:30 | DRG 871 ==
LOC: ER 07:56 → ICU 10:44 → EROBS 10:44 → ICU 15:45 → 3W 10-23 18:15
PROVIDERS: Internal Medicine; Nurse Practitioner; Student in an Organized Health Care Education/Training Program; ADMIT Hospitalist; ATTEND Hospitalist
PROC: 02HV33Z Insertion of Infusion Device into Superior Vena Cava, Percutaneous Approach (ICD-10-PCS; 2021-10-21)
PROC: 0W3P8ZZ Control Bleeding in Gastrointestinal Tract, Via Natural or Artificial Opening Endoscopic (ICD-10-PCS; principal; 2021-10-22)
PROC: 0D758ZZ Dilation of Esophagus, Via Natural or Artificial Opening Endoscopic (ICD-10-PCS; 2021-10-22)
PROC: 30233R1 Transfusion of Nonautologous Platelets into Peripheral Vein, Percutaneous Approach (ICD-10-PCS; 2021-10-23)
DX: A41.9 Sepsis, unspecified organism (principal); J18.9 Pneumonia, unspecified organism; J96.21 Acute and chronic respiratory failure with hypoxia; D62 Acute posthemorrhagic anemia; N17.9 Acute kidney failure, unspecified; N39.0 Urinary tract infection, site not specified; J44.0 Chronic obstructive pulmonary disease with (acute) lower respiratory infection; K92.2 Gastrointestinal hemorrhage, unspecified; I48.91 Unspecified atrial fibrillation; Z79.01 Long term (current) use of anticoagulants; Z20.822 Contact with and (suspected) exposure to COVID-19; Z85.46 Personal history of malignant neoplasm of prostate; Z85.038 Personal history of other malignant neoplasm of large intestine; E78.5 Hyperlipidemia, unspecified; I12.9 Hypertensive chronic kidney disease with stage 1 through stage 4 chronic kidney disease, or unspecified chronic kidney disease; E11.22 Type 2 diabetes mellitus with diabetic chronic kidney disease; N18.9 Chronic kidney disease, unspecified; Z79.4 Long term (current) use of insulin; Z88.0 Allergy status to penicillin; Z66 Do not resuscitate; J45.909 Unspecified asthma, uncomplicated; E66.9 Obesity, unspecified; Z68.30 Body mass index [BMI] 30.0-30.9, adult; I95.9 Hypotension, unspecified; Z92.21 Personal history of antineoplastic chemotherapy; Z92.3 Personal history of irradiation; K21.9 Gastro-esophageal reflux disease without esophagitis
CPT/HCPCS: 10078; 10204; 10779; 10879; 62110; 62900; 70005

== ENCOUNTER 2021-10-27 14:36 | Inpatient (IN) | payer OTHER, BC ==
[~2021-10-27] VITALS: Ht 170.2 cm; Wt 87.6 kg
[~2021-10-27 14:36] MED LIST changes: +B-12500 MCG PO; +BENICAR40 MG PO; +FOLIC ACID1 MG PO; +LASIX 40 MG TAB40 MG PO; +MUCINEX600 MG PO; +NORVASC5 MG PO; +PREDNISONE 10 M10 M1 PO
[2021-10-27 20:00] VITALS: BP 142/69
[2021-10-28 04:32] LABS: HEMATOCRIT 25.1 % (42.0-52.0); HEMOGLOBIN 8.4 gm/dL (14.0-18.0); MCH 32.1 pg (26.0-34.0); MCHC 33.4 g/dL (28.0-37.0); MCV 95.9 fL (80.0-100.0); PLATELET COUNT 117 thou/uL (150-400); RBC 2.62 mil/uL (4.50-6.00); RDW 17.8 % (10.5-14.5); WBC 5.3 thou/uL (4.0-11.0)
[2021-10-28 04:37] LABS: CALCIUM 9.9 mg/dL (8.5-10.1); CREATININE 1.2 mg/dL (0.7-1.3); MAGNESIUM 1.9 mg/dL (1.8-2.4); POTASSIUM 3.5 mmol/L (3.5-5.1)
[2021-10-28 05:43] LABS: ABSOLUTE NEUTROPHILS 4.5 thou/uL (1.4-8.2); ANISOCYTOSIS 1+; METAMYELOCYTES 2 %
[2021-10-28 05:44] LABS: LARGE PLATELETS OCCASIONAL; POLYCHROMASIA OCCASIONAL
[2021-10-28 08:00] VITALS: BP 161/82
[2021-10-28 15:45] LABS: URINE BILIRUBIN NEGATIVE (Negative); URINE BLOOD NEGATIVE (Negative); URINE CLARITY CLEAR; URINE COLOR YELLOW; URINE GLUCOSE-RANDOM* NEGATIVE (Negative); URINE KETONES NEGATIVE (Negative); URINE LEUKOCYTES-REFLEX NEGATIVE (Negative); URINE NITRITE-REFLEX NEGATIVE (Negative); URINE PROTEIN (DIPSTICK) NEGATIVE (Negative); URINE UROBILINOGEN 0.2 E.U./dl (0.2-1.0)
[2021-10-28 20:08] VITALS: BP 123/59
[2021-10-29 08:00] VITALS: BP 141/65
[2021-10-29 10:15] VITALS: BP 141/85
--- NOTE | 2021-10-29 15:35 | HC ---
[facility] [place] [address] [place] [address] CONSULTATION Name: JERO REEVES Room #: 516-1 ADM IN M.R.#: [id number] Admission: 10/27/21 Attend Phys: Greg Harris MD Discharge: Date of : 34 Report #: [id number] THIS REPORT FOR: cc: Kain Nathan MD, Neal A. MD Althoff,Hermes Vasquez MD ~ DATE OF SERVICE: 10/28/2021 CHIEF COMPLAINT: Ulceration to the dorsal left foot. HISTORY OF PRESENT ILLNESS: This is an 86-year-old male patient who was hospitalized in September with COVID pneumonitis and had recent GI bleeding. He was admitted to the rehab unit for strengthening and general rehabilitation, was noted to have extremity edema, developed a blister on his dorsal left foot as well as a skin tear on his left forearm. I have been asked to see him with regard to wound care. He denies any significant pain at this time. PAST MEDICAL HISTORY: Positive for history of asthma, COPD, colon cancer, prostate cancer, brain aneurysm, diabetes, cerebrovascular accident, hypertension, COPD, obstructive sleep apnea, hyperlipidemia, atrial fibrillation with rapid ventricular response and recent COVID pneumonia. SOCIAL HISTORY: Negative for alcohol or tobacco use. He is a previous smoker. He is . FAMILY HISTORY: Noncontributory. MEDICATIONS: Include amiodarone, amlodipine, atenolol, cyanocobalamin, folic acid, furosemide, insulin, montelukast, olmesartan, prednisone, budesonide, pantoprazole, albuterol, atorvastatin, Carisoprodol, guaifenesin, metformin. ALLERGIES: PENICILLIN. REVIEW OF SYSTEMS: CONSTITUTIONAL: The patient denies fever, chills or weight loss. NEUROLOGICAL: The patient denies focal weakness or tingling. EYES: The patient denies any visual changes, redness or drainage. ENT: The patient denies earache, nasal drainage or sore throat. CARDIOVASCULAR: Denies chest pain, palpitations, diaphoresis. PULMONARY: No cough, shortness of breath. GASTROINTESTINAL: Denies nausea or abdominal pain. ORTHOPEDIC: The patient has some swelling of the extremities. Skin tear on the left forearm, blistering on the left foot. Others systems in a 14-point review of systems are negative. [address] [address] CONSULTATION Name: JERO REEVES Room #: 516-1 [facility] IN M.R.#: [id number] Admission: 10/27/21 Attend Phys: Greg Harris MD Discharge: Date of : 34 Report #: [id number] PHYSICAL EXAMINATION: VITAL SIGNS: The patient's vital at this time Include temperature 36.1, pulse 73, respiration 18, blood pressure 161/82. GENERAL: This is a well-developed male patient who appears to be in minimal distress. HEENT: Head normocephalic. Nose and throat are clear. NECK: Supple. LUNGS: Diminished. HEART: Irregular without obvious murmur. ABDOMEN: Soft and nontender. EXTREMITIES: Demonstrate 2-3+ edema of upper and lower extremities, more so on the lower than the upper. He has what appears to be an old skin tear to the left forearm. The edges appear to be a little bit rolled; however, has been covered with marathon skin adhesive and therefore no additional manipulation can be performed at this time. There is a circular ulceration on the dorsal aspect of the left foot related to a recent bullae. It is healthy, clean, granulating and showing of epithelialization. LABORATORY DATA: Include sodium 138, potassium 3.5, chloride 105, CO2 of 32, BUN 33, creatinine 1.2, glucose 128. White blood cell count is 5.3 with a hemoglobin of 8.4. CLINICAL IMPRESSION: 1. Skin tear to the left forearm. 2. Ulceration, left foot from bullae formation. 3. Recent gastrointestinal bleeding. 4. Recent COVID-19 pneumonia. 5. Hypertension. 6. Type 2 diabetes mellitus. 7. Chronic obstructive pulmonary disease. 8. Atrial fibrillation. 9. Hyperlipidemia. RECOMMENDATIONS: At this point in time, the left forearm can be covered with a border foam to be protected to be changed on a Wednesday, Wednesday and Wednesday basis. Once the marathon wears off, there may be some manipulation that could be performed. Otherwise, suspect that the wound edges are going to remain as they are. We will recommend Xeroform, ABD, Kerlix to the left foot with an Sudarshan wrap from toes to knee. Elevation of the legs whenever possible. Continue with medical management, nutritional support. I appreciate being asked to see him in consultation. <ELECTRONICALLY SIGNED> By: Hermes Nayak MD 10/29/21 1535 1523 29 Hermes Nayak MD /nt
[2021-10-29 20:00] VITALS: BP 123/69
[2021-10-30 06:10] VITALS: BP 128/65
[2021-10-30 06:12] VITALS: BP 128/65
[2021-10-30 08:00] VITALS: BP 159/85
[2021-10-30 08:05] VITALS: BP 146/76
[2021-10-30 09:26] LABS: HEMATOCRIT 26.1 % (42.0-52.0); HEMOGLOBIN 8.7 gm/dL (14.0-18.0); MCH 32.1 pg (26.0-34.0); MCHC 33.3 g/dL (28.0-37.0); MCV 96.6 fL (80.0-100.0); PLATELET COUNT 135 thou/uL (150-400); RDW 17.8 % (10.5-14.5); WBC 6.8 thou/uL (4.0-11.0)
[2021-10-30 09:35] LABS: CALCIUM 9.7 mg/dL (8.5-10.1); CREATININE 1.5 mg/dL (0.7-1.3); MAGNESIUM 1.7 mg/dL (1.8-2.4)
[2021-10-30 09:54] LABS: ABSOLUTE NEUTROPHILS 5.4 thou/uL (1.4-8.2)
[2021-10-30 09:56] LABS: ANISOCYTOSIS 1+
[2021-10-30 09:57] LABS: POLYCHROMASIA 1+
[2021-10-30 11:30] VITALS: BP 98/49
[2021-10-30 19:38] VITALS: BP 126/52
[2021-10-31 05:37] LABS: CALCIUM 9.1 mg/dL (8.5-10.1); CREATININE 1.4 mg/dL (0.7-1.3); MAGNESIUM 1.7 mg/dL (1.8-2.4); POTASSIUM 3.5 mmol/L (3.5-5.1)
[2021-10-31 06:14] LABS: HEMATOCRIT 23.5 % (42.0-52.0); MCH 32.2 pg (26.0-34.0); MCV 94.7 fL (80.0-100.0); PLATELET COUNT 104 thou/uL (150-400); RBC 2.49 mil/uL (4.50-6.00); RDW 17.5 % (10.5-14.5); WBC 4.3 thou/uL (4.0-11.0)
[2021-10-31 07:30] VITALS: BP 137/71
[2021-10-31 09:04] LABS: ABSOLUTE NEUTROPHILS 2.8 thou/uL (1.4-8.2)
[2021-10-31 09:05] LABS: ANISOCYTOSIS 1+
[2021-10-31 11:12] VITALS: BP 137/71
[2021-10-31 19:41] VITALS: BP 92/47
[2021-11-01 05:39] LABS: CALCIUM 9.2 mg/dL (8.5-10.1); CREATININE 1.6 mg/dL (0.7-1.3); MAGNESIUM 1.6 mg/dL (1.8-2.4); POTASSIUM 4.3 mmol/L (3.5-5.1)
[2021-11-01 05:44] LABS: HEMOGLOBIN 7.9 gm/dL (14.0-18.0); MCH 31.4 pg (26.0-34.0); MCHC 32.8 g/dL (28.0-37.0); MCV 95.9 fL (80.0-100.0); RBC 2.51 mil/uL (4.50-6.00); RDW 17.8 % (10.5-14.5); WBC 4.4 thou/uL (4.0-11.0)
[2021-11-01 07:20] VITALS: BP 113/53
[2021-11-01 07:45] VITALS: BP 113/53
[2021-11-01 08:30] VITALS: BP 113/53
[2021-11-01 08:40] VITALS: BP 100/50
[2021-11-01 08:50] VITALS: BP 102/44
[2021-11-01 20:43] VITALS: BP 117/66
[2021-11-02 08:00] VITALS: BP 116/54
[2021-11-02 20:05] VITALS: BP 124/63
[2021-11-03 04:43] LABS: HEMATOCRIT 21.3 % (42.0-52.0); HEMOGLOBIN 7.4 gm/dL (14.0-18.0); MCH 32.9 pg (26.0-34.0); MCHC 34.8 g/dL (28.0-37.0); MCV 94.5 fL (80.0-100.0); RBC 2.26 mil/uL (4.50-6.00); RDW 17.1 % (10.5-14.5); WBC 3.3 thou/uL (4.0-11.0)
[2021-11-03 04:50] LABS: CALCIUM 8.9 mg/dL (8.5-10.1); CREATININE 1.3 mg/dL (0.7-1.3); POTASSIUM 3.8 mmol/L (3.5-5.1)
[2021-11-03 07:12] VITALS: BP 126/74
[2021-11-03 07:21] VITALS: BP 108/64
[2021-11-03 07:27] VITALS: BP 102/59
[2021-11-03 12:45] LABS: MAGNESIUM 1.7 mg/dL (1.8-2.4)
[2021-11-03 19:44] VITALS: BP 140/75
== END 2021-11-04 | disposition hospice, home (50) | DRG 811 ==
PROVIDERS: Internal Medicine; Internal Medicine Cardiovascular Disease; Nurse Practitioner; Nurse Practitioner Family; ADMIT Physical Medicine & Rehabilitation; ATTEND Physical Medicine & Rehabilitation
PROC: 5A09357 Assistance with Respiratory Ventilation, Less than 24 Consecutive Hours, Continuous Positive Airway Pressure (ICD-10-PCS; principal; 2021-10-31)
PROC: 5A09357 Assistance with Respiratory Ventilation, Less than 24 Consecutive Hours, Continuous Positive Airway Pressure (ICD-10-PCS; 2021-11-01)
PROC: 5A09357 Assistance with Respiratory Ventilation, Less than 24 Consecutive Hours, Continuous Positive Airway Pressure (ICD-10-PCS; 2021-11-02)
PROC: 5A09357 Assistance with Respiratory Ventilation, Less than 24 Consecutive Hours, Continuous Positive Airway Pressure (ICD-10-PCS; 2021-11-03)
DX: D64.9 Anemia, unspecified (principal); J18.9 Pneumonia, unspecified organism; E43 Unspecified severe protein-calorie malnutrition; A41.9 Sepsis, unspecified organism; J96.21 Acute and chronic respiratory failure with hypoxia; J44.0 Chronic obstructive pulmonary disease with (acute) lower respiratory infection; N17.9 Acute kidney failure, unspecified; I50.30 Unspecified diastolic (congestive) heart failure; I13.0 Hypertensive heart and chronic kidney disease with heart failure and stage 1 through stage 4 chronic kidney disease, or unspecified chronic kidney disease; R53.81 Other malaise; Z66 Do not resuscitate; R53.1 Weakness; E66.9 Obesity, unspecified; D69.6 Thrombocytopenia, unspecified; E53.8 Deficiency of other specified B group vitamins; E11.22 Type 2 diabetes mellitus with diabetic chronic kidney disease; E11.621 Type 2 diabetes mellitus with foot ulcer; G47.33 Obstructive sleep apnea (adult) (pediatric); E78.5 Hyperlipidemia, unspecified; R60.1 Generalized edema; L97.529 Non-pressure chronic ulcer of other part of left foot with unspecified severity; I48.0 Paroxysmal atrial fibrillation; R26.9 Unspecified abnormalities of gait and mobility; R23.8 Other skin changes; I95.1 Orthostatic hypotension; E03.8 Other specified hypothyroidism; N40.1 Benign prostatic hyperplasia with lower urinary tract symptoms; R33.8 Other retention of urine; X58.XXXD Exposure to other specified factors, subsequent encounter; Z74.09 Other reduced mobility; Z86.73 Personal history of transient ischemic attack (TIA), and cerebral infarction without residual deficits; Z86.16 Personal history of COVID-19; Z85.038 Personal history of other malignant neoplasm of large intestine; Z85.46 Personal history of malignant neoplasm of prostate; Z87.01 Personal history of pneumonia (recurrent); Z90.49 Acquired absence of other specified parts of digestive tract; Z85.828 Personal history of other malignant neoplasm of skin; Z98.49 Cataract extraction status, unspecified eye; Z88.0 Allergy status to penicillin; Z68.30 Body mass index [BMI] 30.0-30.9, adult; Z87.891 Personal history of nicotine dependence; Z91.81 History of falling; S51.812D Laceration without foreign body of left forearm, subsequent encounter; Z87.19 Personal history of other diseases of the digestive system
CPT/HCPCS: 10112